=== PATIENT | female | born 1975 | race African-American/Black ===

== ENCOUNTER 2017-06-09 00:34 | Emergency (ER) | payer OTHER ==
[2017-06-09 00:58] VITALS: BMI 30.7
[2017-06-09] MEDS ORDERED: KETOROLAC TROMETHAMINE 15 MG/ML VIAL IVPUSH ONE (01:16)
[2017-06-09] MEDS ORDERED: SODIUM CHLORIDE 1,000 ML IV STA (01:17)
[2017-06-09 01:47] LABS: BASO % 0.3 % (0-2.0); EOS # 0.9 # (0-4.5); EOS % 5.9 % (0-4.5); LYMPH # 1.2 (8-40); MCH 20.7 pg (25.7-33.7); MCHC 31.3 g/dl (32.0-36.0); MEAN CELL VOLUME 66.1 fl (80-96); MEAN PLT VOLUME 9.9 fl (7.5-11.1); MONO # 0.5 # (3.8-10.2); NEUT # 12.2 # (42.8-82.8); NEUT % 82.4 % (42.8-82.8); PLATELET COUNT 256 K/MM3 (134-434); RDW 18.8 % (11.6-15.6); WHITE BLOOD COUNT 14.8 K/mm3 (4.0-10.0)
[2017-06-09 02:02] LABS: INR 1.19 (0.82-1.09); PROTHROMBIN TIME (PATIENT) 13.4 SEC (9.98-11.88)
[2017-06-09 02:04] LABS: ACTIVATED PTT 30.4 SECONDS (26.9-34.4)
[2017-06-09 02:17] LABS: ALBUMIN 3.4 g/dl (3.4-5.0); ANION GAP 9 (8-16); CALCIUM 8.5 mg/dL (8.5-10.1); CO2 26 mmol/L (21-32); CREATININE 0.7 mg/dL (0.55-1.02); GLUCOSE,RANDOM 87 mg/dL (74-106); SGOT/AST 41 U/L (15-37); SGPT/ALT 41 U/L (12-78)
[2017-06-09 02:19] LABS: ALK PHOS 93 U/L (45-117); BILIRUBIN,TOTAL 0.5 mg/dL (0.2-1.0); TOT PROT 7.1 g/dl (6.4-8.2); TROPONIN I 0.03 ng/ml (0.00-0.05)
--- NOTE | 2017-06-09 02:22 | PDOC ---
History of Present Illness <Yoni Waller - Last Filed: 06/09/17 06:17> <Bentley Darling - Last Filed: 06/09/17 06:43> - General Chief Complaint: Chest Pain Stated Complaint: CHEST PAIN Time Seen by Provider: 06/09/17 00:54 - History of Present Illness Initial Comments: 06/09/17 02:13 The patient is a 42 year old female, with a significant past medical history of HIV and hypertension, who presents to the emergency room with left sided chest pain beginning approx. 2 hours ago. The patient states that she has had many similar episodes of the exact same pain, which occurs approximately every other month and last for approx. 2-3 days. Pt states that the pain is slightly worse with deep inspiration. It is also reproducible with palpation of her chest. It is not exertional. Pt states that she has had several work ups but has not been given a diagnosis. Does not currently take anything for the pain. She denies recent fever, chills, headache, or dizziness. She denies recent diarrhea or constipation. She denies recent swelling or calf tenderness. She denies double or blurry vision. Allergies: NKA PCP: Tay Amado " 06/09/17 06:17 (Yoni Waller) Past History - Past Medical History Anemia: No Asthma: No Cancer: No HTN: Yes (NON MEDICATED) - Surgical History Abdominal Surgery: Yes (TUBAL LIGATION) Appendectomy: No Cardiac Surgery: No Cholecystectomy: No - Immunization History Td Vaccination: Yes Immunization Up to Date: Yes - Suicide/Smoking/Psychosocial Hx Smoking Status: No Smoking History: Unknown if ever smoked Years of Tobacco Use: 0 Have you smoked in the past 12 months: No Number of Cigarettes Smoked Daily: 0 Cigars Per Day: 0 Information on smoking cessation initiated: No Hx Alcohol Use: No Drug/Substance Use Hx: No Substance Use Type: None <Yoni Waller - Last Filed: 06/09/17 06:17> <Bentley Darling - Last Filed: 06/09/17 06:43> - Past Medical History Allergies/Adverse Reactions: Allergies Allergy/AdvReac Type Severity Reaction Status Date / Time No Known Allergies Allergy Verified 06/09/17 00:56 Home Medications: Ambulatory Orders No Home Medications 0 dose .ROUTE UTDICT 10/27/12 Review of Systems <Yoni Waller - Last Filed: 06/09/17 06:17> <Bentley Darling - Last Filed: 06/09/17 06:43> - Review of Systems Comments:: 06/09/17 02:22 "GENERAL/CONSTITUTIONAL: No fever or chills. No weakness. HEAD, EYES, EARS, NOSE AND THROAT: No change in vision. No ear pain or discharge. No sore throat. CARDIOVASCULAR: +Chest pain RESPIRATORY: No cough, wheezing, or hemoptysis. GASTROINTESTINAL: No nausea/vomiting, No diarrhea or constipation. GENITOURINARY: No dysuria, frequency, or change in urination. MUSCULOSKELETAL: No joint or muscle swelling or pain. No neck or back pain. SKIN: No rash NEUROLOGIC: No headache, vertigo, loss of consciousness, or change in strength/sensation. ENDOCRINE: No increased thirst. No abnormal weight change. HEMATOLOGIC/LYMPHATIC: No anemia, easy bleeding, or history of blood clots. ALLERGIC/IMMUNOLOGIC: No hives or skin allergy. " (Yoni Waller) *Physical Exam <Yoni Waller - Last Filed: 06/09/17 06:17> <Bentley Darling - Last Filed: 06/09/17 06:43> - Vital Signs Last Vital Signs Temp Pulse Resp BP Pulse Ox 97.5 F L 105 H 16 162/103 100 06/09/17 00:56 06/09/17 00:56 06/09/17 00:56 06/09/17 00:56 06/09/17 00:56 - Physical Exam Comments: 06/09/17 02:23 "GENERAL: Awake, alert, and fully oriented. HEAD: No signs of trauma EYES: PERRLA, EOMI, sclera anicteric, conjunctiva clear ENT: Auricles normal inspection, hearing grossly normal, nares patent, oropharynx clear without exudates. Moist mucosa NECK: Nontender, no stepoffs, Normal ROM, supple, no lymphadenopathy, JVD, or masses LUNGS: Breath sounds equal, clear to auscultation bilaterally. No wheezes, and no crackles HEART: Regular rate and rhythm, normal S1 and S2, no murmurs, rubs or gallops CHEST: L chest wall TTP ABDOMEN: Soft, nontender, normoactive bowel sounds. No guarding, no rebound. No masses EXTREMITIES: Normal range of motion, no edema. No clubbing or cyanosis. No cords , erythema, or tenderness NEUROLOGICAL: Cranial nerves II through XII intact. 5/5 strength and sensation in all extremities, Normal speech, normal gait SKIN: Warm, Dry, normal turgor, no rashes or lesions noted. " (Yoni Waller) Heart Score/ECG Review - History History: Slightly suspicious - Electrocardiogram EKG: Normal - Age Age: </= 45 - Risk Factors Risk Factors Heart Score: Yes Hx Obesity Based on the list above the patient has:: 1-2 risk factors - Troponin Troponin: </= normal limit - Score Heart Score - Total: 1 <Yoni Waller - Last Filed: 06/09/17 06:17> <Bentley Darling - Last Filed: 06/09/17 06:43> - ECG Impressions Comment:: 06/09/17 02:29 NSR, no LISA/STDs, no TWIs, axis wnl, intervals wnl, no change since prior EKG in 2012 (Aminah Walleran) ED Treatment Course - LABORATORY CBC & Chemistry Diagram: 06/09/17 01:35 06/09/17 01:35 <Yoni Waller - Last Filed: 06/09/17 06:17> - LABORATORY CBC & Chemistry Diagram: 06/09/17 01:35 06/09/17 01:35 <Bentley Darling - Last Filed: 06/09/17 06:43> - ADDITIONAL ORDERS Additional order review: Laboratory Results 06/09/17 06/09/17 06/09/17 04:01 01:35 01:35 PT with INR 13.40 H INR 1.19 H PTT (Actin FS) 30.4 Sodium 139 Potassium 3.7 Chloride 104 Carbon Dioxide 26 Anion Gap 9 BUN 10 D Creatinine 0.7 D Creat Clearance w eGFR > 60 Random Glucose 87 Calcium 8.5 Total Bilirubin 0.5 D AST 41 H ALT 41 Alkaline Phosphatase 93 Creatine Kinase Troponin I Total Protein 7.1 Albumin 3.4 Serum , Qual Negative 06/09/17 01:35 PT with INR INR PTT (Actin FS) Sodium Potassium Chloride Carbon Dioxide Anion Gap BUN Creatinine Creat Clearance w eGFR Random Glucose Calcium Total Bilirubin AST ALT Alkaline Phosphatase Creatine Kinase 101 Troponin I 0.03 Total Protein Albumin Serum , Qual 06/09/17 01:35 RBC 4.22 MCV 66.1 L MCHC 31.3 L RDW 18.8 H MPV 9.9 Neutrophils % 82.4 D Lymphocytes % 7.8 L D Monocytes % 3.6 L Eosinophils % 5.9 H D Basophils % 0.3 - RADIOLOGY Radiograph Interpretation: 06/09/17 06:43 EXAM: X-RAY CHEST No focal lung consolidation or pleural effusions. Cardiomegaly and/or pericardial effusion, with heart size also probably accentuated by minimal hypoinflation lungs. Reported by Debby Lawson M.D. (Bentley Darling) - Medications Given in the ED: ED Medications Discontinued Medications Generic Name Dose Route Start Last Admin Trade Name Freq PRN Reason Stop Dose Admin Sodium Chloride 1,000 mls @ 1,000 mls/hr 06/09/17 01:17 06/09/17 01:20 Normal Saline - IV 06/09/17 02:16 1,000 mls/hr ASDIR STA Administration Ketorolac Tromethamine 15 mg 06/09/17 01:16 06/09/17 06:32 Toradol Injection - IVPUSH 06/09/17 01:17 15 mg ONCE ONE Administration Medical Decision Making <Yoni Waller - Last Filed: 06/09/17 06:17> <Bentley Darling - Last Filed: 06/09/17 06:43> - Medical Decision Making 06/09/17 02:24 42 F with atypical L sided chest pain. Pt has had multiple prior work ups for the same. EKG is nonischemic, making ACS unlikely. Pt with no PE risk factors but tachycardic so cannot PERC out. Will send Ddimer to r/o PE. - Labs, trop - CXR - Toradol 06/09/17 06:11 CBC,CMP WBC 14.8 K/mm3 (4.0-10.0) H D 06/09/17 01:35 RBC 4.22 M/mm3 (3.60-5.2) 06/09/17 01:35 Hgb 8.7 GM/dL (10.7-15.3) L D 06/09/17 01:35 Hct 27.9 % (32.4-45.2) L D 06/09/17 01:35 MCV 66.1 fl (80-96) L 06/09/17 01:35 MCH 20.7 pg (25.7-33.7) L 06/09/17 01:35 MCHC 31.3 g/dl (32.0-36.0) L 06/09/17 01:35 RDW 18.8 % (11.6-15.6) H 06/09/17 01:35 Plt Count 256 K/MM3 (134-434) 06/09/17 01:35 MPV 9.9 fl (7.5-11.1) 06/09/17 01:35 Neutrophils % 82.4 % (42.8-82.8) D 06/09/17 01:35 Lymphocytes % 7.8 % (8-40) L D 06/09/17 01:35 Monocytes % 3.6 % (3.8-10.2) L 06/09/17 01:35 Eosinophils % 5.9 % (0-4.5) H D 06/09/17 01:35 Basophils % 0.3 % (0-2.0) 06/09/17 01:35 Sodium 139 mmol/L (136-145) 06/09/17 01:35 Potassium 3.7 mmol/L (3.5-5.1) 06/09/17 01:35 Chloride 104 mmol/L (98-107) 06/09/17 01:35 Carbon Dioxide 26 mmol/L (21-32) 06/09/17 01:35 Anion Gap 9 (8-16) 06/09/17 01:35 BUN 10 mg/dL (7-18) D 06/09/17 01:35 Creatinine 0.7 mg/dL (0.55-1.02) D 06/09/17 01:35 Creat Clearance w eGFR > 60 (>60) 06/09/17 01:35 Random Glucose 87 mg/dL (74-106) 06/09/17 01:35 Calcium 8.5 mg/dL (8.5-10.1) 06/09/17 01:35 Total Bilirubin 0.5 mg/dL (0.2-1.0) D 06/09/17 01:35 AST 41 U/L (15-37) H 06/09/17 01:35 ALT 41 U/L (12-78) 06/09/17 01:35 Alkaline Phosphatase 93 U/L (45-117) 06/09/17 01:35 Creatine Kinase 101 IU/L (26-192) 06/09/17 01:35 Troponin I 0.03 ng/ml (0.00-0.05) 06/09/17 01:35 Total Protein 7.1 g/dl (6.4-8.2) 06/09/17 01:35 Albumin 3.4 g/dl (3.4-5.0) 06/09/17 01:35 Serum , Qual Negative 06/09/17 04:01 Trop negative x1. CXR clear on my read. Pending 2nd trop and Ddimer. (Yoni Waller) *DC/Admit/Observation/Transfer <Yoni Waller - Last Filed: 06/09/17 06:17> <Bentley Darling - Last Filed: 06/09/17 06:43> - Referrals Referrals: Josesito Cross [Primary Care Provider] - - Patient Instructions - Post Discharge Activity - Attestations Scribe Attestion: 06/09/17 02:31 Documentation prepared by Bentley Darling, acting as medical terminologist for Yoni Waller MD. (Bentley Darling)
[2017-06-09] MEDS ORDERED: KETOROLAC TROMETHAMINE 15 MG/ML VIAL ONE (06:26)
[2017-06-09 07:13] LABS: TROPONIN I 0.03 ng/ml (0.00-0.05)
--- NOTE | 2017-06-09 09:56 | PDOC ---
*Physical Exam - Vital Signs Last Vital Signs Temp Pulse Resp BP Pulse Ox 97.5 F L 105 H 16 162/103 100 06/09/17 00:56 06/09/17 00:56 06/09/17 00:56 06/09/17 00:56 06/09/17 00:56 ED Treatment Course - LABORATORY CBC & Chemistry Diagram: 06/09/17 01:35 06/09/17 01:35 - ADDITIONAL ORDERS Additional order review: Laboratory Results 06/09/17 06/09/17 06/09/17 06:31 06:31 04:01 PT with INR INR PTT (Actin FS) D-Dimer 395 H Sodium Potassium Chloride Carbon Dioxide Anion Gap BUN Creatinine Creat Clearance w eGFR Random Glucose Calcium Total Bilirubin AST ALT Alkaline Phosphatase Creatine Kinase 106 Troponin I 0.03 Total Protein Albumin Serum , Qual Negative 06/09/17 06/09/17 06/09/17 01:35 01:35 01:35 PT with INR 13.40 H INR 1.19 H PTT (Actin FS) 30.4 D-Dimer Sodium 139 Potassium 3.7 Chloride 104 Carbon Dioxide 26 Anion Gap 9 BUN 10 D Creatinine 0.7 D Creat Clearance w eGFR > 60 Random Glucose 87 Calcium 8.5 Total Bilirubin 0.5 D AST 41 H ALT 41 Alkaline Phosphatase 93 Creatine Kinase 101 Troponin I 0.03 Total Protein 7.1 Albumin 3.4 Serum , Qual 06/09/17 01:35 RBC 4.22 MCV 66.1 L MCHC 31.3 L RDW 18.8 H MPV 9.9 Neutrophils % 82.4 D Lymphocytes % 7.8 L D Monocytes % 3.6 L Eosinophils % 5.9 H D Basophils % 0.3 - RADIOLOGY Radiology Studies Ordered: Category Date Time Status CHEST CTA [CT] Stat CT Scan 06/09/17 07:22 Completed - Medications Given in the ED: ED Medications Discontinued Medications Generic Name Dose Route Start Last Admin Trade Name Freq PRN Reason Stop Dose Admin Sodium Chloride 1,000 mls @ 1,000 mls/hr 06/09/17 01:17 06/09/17 01:20 Normal Saline - IV 06/09/17 02:16 1,000 mls/hr ASDIR STA Administration Ketorolac Tromethamine 15 mg 06/09/17 01:16 06/09/17 06:32 Toradol Injection - IVPUSH 06/09/17 01:17 15 mg ONCE ONE Administration Medical Decision Making - Medical Decision Making 06/09/17 09:56 pt signed out to me from dr. mendoza. 42y F hx of HIV (on HAART, last CD4 700s), HTN, presents with complain tof L sided cp, episodic, pleuritic in nature associated with cough productive of whitish sputum, subjective fevers yesterday. No associated fan, leg swelling, hemoptysis. Pts exam unremabable beside mild tenderness in the chest lungs clear pt i nno distress pts repeat vitals normal. will give rx for azithro will have pt fu with her ID doctor within 5 days return precautions were discussed I discussed the physical exam findings, ancillary test results and final diagnoses with the patient. I answered all of the patient's questions. The patient was satisfied with the care received and felt comfortable with the discharge plan and treatment plan. The patient will call their primary care physician within 24 hours to arrange follow-up and will return to the Emergency Department with any new, persistent or worsening symptoms. *DC/Admit/Observation/Transfer Diagnosis at time of Disposition: Pneumonia Qualifiers: Pneumonia type: due to unspecified organism Laterality: right Lung location: unspecified part of lung Qualified Code(s): J18.9 - Pneumonia, unspecified organism Chest pain Qualifiers: Chest pain type: unspecified Qualified Code(s): R07.9 - Chest pain, unspecified - Discharge Dispostion Disposition: HOME Condition at time of disposition: Improved Admit: No - Prescriptions Prescriptions: Azithromycin 250 mg PO DAILY #4 tablet - Referrals Referrals: Josesito Cross [Primary Care Provider] - - Patient Instructions Printed Discharge Instructions: DI for Pneumonia -- Adult, DI for Atypical Chest Pain Additional Instructions: Return to the emergency department immediately with ANY new, persistent or worsening symptoms includnig any shortness of breath, worsening pain or any other concerns. Tkae the antibitotics as prescribed Take motrin and tylenol as needed for fever/aches. You MUSTcall and follow up with Dr. Cross within 3-4 days w for further evaluation of your symptoms. Results were discussed with you. Please make sure your doctor reviews the results of your emergency evaluation. - Post Discharge Activity
[2017-06-09] MEDS ORDERED: AZITHROMYCIN 500 MG TABLET PO ONE (10:08)
[2017-06-09] MEDS ORDERED: ACETAMINOPHEN 325 MG TABLET (FP) PO ONE (10:20)
[2017-06-09 10:22] VITALS: BP 157/99; PULSE 97
[2017-06-09 10:26] VITALS: TEMP 99
[2017-06-09] MEDS ORDERED: AZITHROMYCIN 250 MG TABLET ONE (12:16)
[2017-06-09] MEDS ORDERED: ACETAMINOPHEN 325 MG TABLET (FP) ONE (12:17)
--- NOTE | 2017-06-09 13:08 | EKG ---
Test Reason : Blood Pressure : / mmHG Vent. Rate : 101 BPM Atrial Rate : 101 BPM P-R Int : 176 ms QRS Dur : 078 ms QT Int : 354 ms P-R-T Axes : 053 040 042 degrees QTc Int : 459 ms SINUS TACHYCARDIA OTHERWISE NORMAL ECG WHEN COMPARED WITH ECG OF 06-DEC-2012 04:25, ST NO LONGER ELEVATED IN ANTERIOR LEADS Confirmed by MD Orellana Daniel ([id number]) on 06/09/2017 1:08:24 PM Referred By: Confirmed By:Jassi Orellana MD
== END 2017-06-09 12:22 | disposition home or self-care (01) ==
LOC: JER 00:34
PROC: 3E0333Z Introduction of Anti-inflammatory into Peripheral Vein, Percutaneous Approach (ICD-10-PCS; principal; 2017-06-09)
PROC: 3E0337Z Introduction of Electrolytic and Water Balance Substance into Peripheral Vein, Percutaneous Approach (ICD-10-PCS; 2017-06-09)
DX: R07.9 Chest pain, unspecified (principal); J18.9 Pneumonia, unspecified organism
CPT/HCPCS: 36415; 71020-TC; 71275-TC; 80053; 82550; 84484; 84703; 85025; 85379; 85610; 85730; 93005; 93010; 96361; 96374; 99285-25

== ENCOUNTER 2017-09-04 13:12 | Inpatient (IN) | payer OTHER ==
[2017-09-04] MEDS ORDERED: ACETAMINOPHEN 1000 MG/100 ML VIAL (NON FORMULARY) IVPB ONE (13:51)
[2017-09-04] MEDS ORDERED: ACETAMINOPHEN INJECTION 100 ML IVPB ONE (13:55)
[2017-09-04 14:03] LABS: BASO % 1.1 % (0-2.0); EOS % 3.7 % (0-4.5); HEMATOCRIT 30.8 % (32.4-45.2); HEMOGLOBIN 9.7 GM/dL (10.7-15.3); LYMPH % 34.4 % (8-40); MCHC 31.5 g/dl (32.0-36.0); MEAN CELL VOLUME 66.7 fl (80-96); MEAN PLT VOLUME 9.9 fl (7.5-11.1); MONO % 5.8 % (3.8-10.2); PLATELET COUNT 325 K/MM3 (134-434); RBC 4.61 M/mm3 (3.60-5.2); RDW 19.7 % (11.6-15.6); WHITE BLOOD COUNT 5.6 K/mm3 (4.0-10.0)
[2017-09-04 14:19] LABS: INR 1.04 (0.82-1.09); PROTHROMBIN TIME (PATIENT) 11.7 SEC (9.98-11.88)
--- NOTE | 2017-09-04 14:31 | PDOC ---
History of Present Illness <Bentley Darling - Last Filed: 09/04/17 14:42> <Yoni Waller - Last Filed: 09/04/17 19:55> <Jennie Archer - Last Filed: 09/04/17 21:42> - General Chief Complaint: Shortness of Breath Stated Complaint: CHEST PAIN Time Seen by Provider: 09/04/17 13:15 - History of Present Illness Initial Comments: 09/04/17 14:26 "The patient is a 42 year old female, with a significant past medical history of HIV (last CD4 1000, does not remember VL), anxiety, hypertension, panic attacks, who presents to the emergency department complaining of chest pain and shortness of breath beginning this morning. The patient states she visited her PCP at the [facility] earlier today to establish care. She was advised to come to the ED for evaluation when she started complaining of the shortness of breath and chest pain. The patient also reports left arm pain for approx. 3 days described as a sharp pain. The patient reports a family history of cardiac disease and states her grandmother from a [place] at 56. The patient reports she has never had this chest pain in the past. The patient states she has not taken her blood pressure medication this morning. She denies any recent travel. She denies recent fevers, chills, headache or dizziness. She denies recent nausea, vomit, diarrhea or constipation. She denies recent dysuria, frequency, urgency or hematuria. Allergies: NKA Social history: Nonsmoker. Denies EtOH use and recreational drug use. Primary Care Physician: Dr. Nikky Huang " (Yoni Waller) Past History <Bentley Darling - Last Filed: 09/04/17 14:42> - Past Medical History Anemia: No Asthma: No Cancer: No Cardiac Disorders: No COPD: No Diabetes: No HTN: Yes Hypercholesterolemia: Yes Liver Disease: No Seizures: No Thyroid Disease: No - Surgical History Orthopedic Surgery: Yes (2015-L knee replacement/arthritis; 2016- R knee replace /arthritis ([place])) - Suicide/Smoking/Psychosocial Hx Smoking History: Never smoked Have you smoked in the past 12 months: No Information on smoking cessation initiated: No Hx Alcohol Use: No Drug/Substance Use Hx: No <Yoni Waller - Last Filed: 09/04/17 19:55> <Jennie Archer - Last Filed: 09/04/17 21:42> - Past Medical History Allergies/Adverse Reactions: Allergies Allergy/AdvReac Type Severity Reaction Status Date / Time No Known Allergies Allergy Verified 09/04/17 11:58 Home Medications: Ambulatory Orders Elviteg/Cob/Emtri/Tenof Alafen [Genvoya Tablet] 1 tab PO DAILY 09/04/17 Review of Systems <Bentley Darling - Last Filed: 09/04/17 14:42> <Yoni Waller - Last Filed: 09/04/17 19:55> <Jennie Archer - Last Filed: 09/04/17 21:42> - Review of Systems Comments:: 09/04/17 14:28 "GENERAL/CONSTITUTIONAL: No fever or chills. No weakness. HEAD, EYES, EARS, NOSE AND THROAT: No change in vision. No ear pain or discharge. No sore throat. CARDIOVASCULAR: +Chest pain. +Shortness of breath. RESPIRATORY: No cough, wheezing, or hemoptysis. GASTROINTESTINAL: No nausea, vomiting, diarrhea or constipation. GENITOURINARY: No dysuria, frequency, or change in urination. MUSCULOSKELETAL: +Left arm pain. No neck or back pain. SKIN: No rash NEUROLOGIC: No headache, vertigo, loss of consciousness, or change in strength/ sensation. ENDOCRINE: No increased thirst. No abnormal weight change. HEMATOLOGIC/LYMPHATIC: No anemia, easy bleeding, or history of blood clots. ALLERGIC/IMMUNOLOGIC: No hives or skin allergy. " (Yoni Waller) *Physical Exam <Bentley Darling - Last Filed: 09/04/17 14:42> <Yoni Waller - Last Filed: 09/04/17 19:55> <Jennie Archer - Last Filed: 09/04/17 21:42> - Vital Signs Last Vital Signs Temp Pulse Resp BP Pulse Ox 98.3 F 89 20 135/80 98 09/04/17 20:20 09/04/17 20:20 09/04/17 20:20 09/04/17 20:20 09/04/17 20:20 - Physical Exam Comments: 09/04/17 14:28 "GENERAL: Awake, alert, and fully oriented, in no acute distress HEAD: No signs of trauma EYES: PERRLA, EOMI, sclera anicteric, conjunctiva clear ENT: Auricles normal inspection, hearing grossly normal, nares patent, oropharynx clear without exudates. Moist mucosa NECK: Nontender, no stepoffs, Normal ROM, supple, no lymphadenopathy, JVD, or masses LUNGS: Breath sounds equal, clear to auscultation bilaterally. No wheezes, and no crackles HEART: Regular rate and rhythm, normal S1 and S2, no murmurs, rubs or gallops ABDOMEN: Soft, nontender, normoactive bowel sounds. No guarding, no rebound. No masses EXTREMITIES: Normal range of motion, no edema. No clubbing or cyanosis. No cords, erythema, or tenderness NEUROLOGICAL: Cranial nerves II through XII intact. 5/5 strength and sensation in all extremities, Normal speech, normal gait, normal cerebellar function SKIN: Warm, Dry, normal turgor, no rashes or lesions noted. " (Yoni Waller) Heart Score/ECG Review <Bentley Darling - Last Filed: 09/04/17 14:42> - History History: Slightly suspicious - Electrocardiogram EKG: Normal - Age Age: </= 45 - Risk Factors Risk Factors Heart Score: Yes Hx Hypertension, Yes Positive family hx of cardiac disease Based on the list above the patient has:: >/=3 risk factors or Hx atherosclerotic disease - Troponin Troponin: </= normal limit - Score Heart Score - Total: 2 <Yoni Waller - Last Filed: 09/04/17 19:55> <Jennie Archer - Last Filed: 09/04/17 21:42> - ECG Impressions Comment:: 09/04/17 14:31 NSR, no LISA/STDs, no TWIs, axis wnl, intervals wnl, rate 69 (Yoni Waller) ED Treatment Course - LABORATORY CBC & Chemistry Diagram: 09/04/17 13:50 09/04/17 13:50 <Bentley Darling - Last Filed: 09/04/17 14:42> - LABORATORY CBC & Chemistry Diagram: 09/04/17 13:50 09/04/17 13:50 <Yoni Waller - Last Filed: 09/04/17 19:55> - LABORATORY CBC & Chemistry Diagram: 09/04/17 13:50 09/04/17 13:50 <Jennie Archer - Last Filed: 09/04/17 21:42> - ADDITIONAL ORDERS Additional order review: Laboratory Results 09/04/17 09/04/17 09/04/17 17:20 13:52 13:52 PT with INR INR D-Dimer Sodium Potassium Chloride Carbon Dioxide Anion Gap BUN Creatinine Creat Clearance w eGFR Random Glucose Calcium Total Bilirubin AST ALT Alkaline Phosphatase Creatine Kinase Troponin I 0.06 H B-Natriuretic Peptide 34.81 Total Protein Albumin Urine Color Colorless Urine Appearance Clear Urine pH 7.0 Ur Specific [place] 1.004 Urine Protein Negative Urine Glucose (UA) Negative Urine Ketones Negative Urine Blood Negative Urine Nitrite Negative Urine Bilirubin Negative Urine Urobilinogen Negative Ur Leukocyte Esterase Negative Urine HCG, Qual Negative 09/04/17 09/04/17 09/04/17 13:52 13:52 13:50 PT with INR 11.70 INR 1.04 D-Dimer 351 Sodium Potassium Chloride Carbon Dioxide Anion Gap BUN Creatinine Creat Clearance w eGFR Random Glucose Calcium Total Bilirubin AST ALT Alkaline Phosphatase Creatine Kinase Cancelled Troponin I Cancelled B-Natriuretic Peptide Total Protein Albumin Urine Color Urine Appearance Urine pH Ur Specific [place] Urine Protein Urine Glucose (UA) Urine Ketones Urine Blood Urine Nitrite Urine Bilirubin Urine Urobilinogen Ur Leukocyte Esterase Urine HCG, Qual 09/04/17 13:50 PT with INR INR D-Dimer Sodium 138 Potassium 4.7 Chloride 103 Carbon Dioxide 26 Anion Gap 9 BUN 8 Creatinine 0.7 Creat Clearance w eGFR > 60 Random Glucose 80 Calcium 8.9 Total Bilirubin 0.5 AST 60 H ALT 62 Alkaline Phosphatase 91 Creatine Kinase 95 Troponin I 0.05 B-Natriuretic Peptide Total Protein 8.0 Albumin 3.9 Urine Color Urine Appearance Urine pH Ur Specific [place] Urine Protein Urine Glucose (UA) Urine Ketones Urine Blood Urine Nitrite Urine Bilirubin Urine Urobilinogen Ur Leukocyte Esterase Urine HCG, Qual 09/04/17 13:50 RBC 4.61 MCV 66.7 L MCHC 31.5 L RDW 19.7 H MPV 9.9 Neutrophils % 55.0 Lymphocytes % 34.4 Monocytes % 5.8 Eosinophils % 3.7 Basophils % 1.1 - Medications Given in the ED: ED Medications Discontinued Medications Generic Name Dose Route Start Last Admin Trade Name Freq PRN Reason Stop Dose Admin Acetaminophen 1,000 mg 09/04/17 13:51 09/04/17 14:00 Ofirmev Injection - IVPB 09/04/17 13:52 1,000 mg ONCE ONE Administration Amlodipine Besylate 5 mg 09/04/17 15:04 09/04/17 15:07 Norvasc - PO 09/04/17 15:05 5 mg ONCE ONE Administration Ketorolac Tromethamine 15 mg 09/04/17 14:58 09/04/17 15:04 Toradol Injection - IVPUSH 09/04/17 14:59 15 mg ONCE ONE Administration Tramadol HCl 50 mg 09/04/17 16:50 09/04/17 17:16 Ultram - PO 09/04/17 16:51 50 mg ONCE ONE Administration Medical Decision Making <Bentley Darling - Last Filed: 09/04/17 14:42> <Yoni Waller - Last Filed: 09/04/17 19:55> <Jennie Archer - Last Filed: 09/04/17 21:42> - Medical Decision Making 09/04/17 14:32 42 F with CP/SOB. Pt has FH of [place], so will r/o ACS with trop and EKG. Pt is immune compromised, but pt does not have any fevers or focal infectious symptoms. Consider CHF, though pt without any rales or pitting edema. PE is unlikely as pt has no clinical signs of DVT/PE and has normal vitals. - Labs, trop, BNP, ddimer - CXR 09/04/17 15:03 Labs, trop, BNP, ddimer all wnl CXR pending Will send 2nd trop @ 4 hours. 09/04/17 16:26 CXR unremarkable 09/04/17 19:56 2nd trop 0.06, slightly higher than previous 0.05. Given continued chest pain and mild uptrend in troponin, will admit to tele obs. (Yoni Waller) 09/04/17 19:28 Pt endorsed to hospitalist service for placement on tele. (Jennie Archer) *DC/Admit/Observation/Transfer <Bentley Darling - Last Filed: 09/04/17 14:42> <Yoni Waller - Last Filed: 09/04/17 19:55> - Discharge Dispostion Admit: Yes <Jennie Archer - Last Filed: 09/04/17 21:42> Diagnosis at time of Disposition: Left arm pain Chest pain Qualifiers: Chest pain type: unspecified Qualified Code(s): R07.9 - Chest pain, unspecified - Discharge Dispostion Condition at time of disposition: Stable - Attestations Scribe Attestion: 09/04/17 14:43 Documentation prepared by Bentley Darling, acting as medical technologist prn for Yoni Waller MD. (Bentley Darling) Physician Attestion: 09/04/17 19:55 I, Dr. Yoni Waller MD, attest that this document has been prepared under my direction and personally reviewed by me in its entirety. I further attest, that it accurately reflects all work, treatment, procedures and medical decision -making performed by me. (Yoni Waller)
[2017-09-04 14:33] LABS: ALBUMIN 3.9 g/dl (3.4-5.0); ANION GAP 9 (8-16); BLOOD UREA NITROGEN 8 mg/dL (7-18); CALCIUM 8.9 mg/dL (8.5-10.1); CHLORIDE 103 mmol/L (98-107); CO2 26 mmol/L (21-32); CREATININE 0.7 mg/dL (0.55-1.02); GLUCOSE,RANDOM 80 mg/dL (74-106); SGPT/ALT 62 U/L (12-78); SODIUM 138 mmol/L (136-145)
[2017-09-04 14:37] LABS: ALK PHOS 91 U/L (45-117); BILIRUBIN,TOTAL 0.5 mg/dL (0.2-1.0)
[2017-09-04 14:49] LABS: HCG,QUALITATIVE URINE NEGATIVE; URINE APPEARANCE CLEAR; URINE BILIRUBIN NEGATIVE (<2.0 mg/dL); URINE BLOOD NEGATIVE (NEGATIVE); URINE COLOR COLORLESS; URINE GLUCOSE (UA) NEGATIVE (NEGATIVE); URINE KETONE NEGATIVE (NEGATIVE); URINE LEUK ESTERASE NEGATIVE (NEGATIVE); URINE NITRITE NEGATIVE (NEGATIVE); URINE PROTEIN NEGATIVE (NEGATIVE); URINE UROBILINOGEN NEGATIVE mg/dL (0.2-1.0)
[2017-09-04 14:50] LABS: POTASSIUM 4.7 mmol/L (3.5-5.1); SGOT/AST 60 U/L (15-37)
[2017-09-04] MEDS ORDERED: KETOROLAC TROMETHAMINE 15 MG/ML VIAL IVPUSH ONE (14:58)
[2017-09-04] MEDS ORDERED: KETOROLAC TROMETHAMINE 15 MG/ML VIAL ONE (15:01)
[2017-09-04] MEDS ORDERED: amLODIPine BESYLATE 5 MG TABLET (FP) PO ONE ×2 (15:04→22:15)
[2017-09-04] MEDS ORDERED: amLODIPine BESYLATE 5 MG TABLET (FP) ONE (15:05)
[2017-09-04] MEDS ORDERED: traMADol HCL 50 MG TABLET PO ONE (16:50)
[2017-09-04] MEDS ORDERED: traMADol HCL 50 MG TABLET ONE (17:13)
--- NOTE | 2017-09-04 20:55 | HP ---
CHIEF COMPLAINT: chest pain and arm pain PCP: Dr. Nikky Polanco HISTORY OF PRESENT ILLNESS: 42 y/o F w/PMH of HIV (VL 1000, CD4 743 as per pt in February 2017), HTN, panic attacks, presents to the ER for chest pain and L arm pain. Pt has had L arm pain for 2 days that is sharp and starts at shoulder and is rated at a 9/ 10. She was seen at the [address] [place] [address] to establish care there and was found to have elevated BP and developed CP and SOB (which she states was in line with what she feels when she's anxious) and was told to come to the ER. She states her chest pain starts in her L upper chest near her shoulder and is also rated as a 9/10 and sharp with radiation down her left arm. It started all of sudden while in the clinic. Exertion did not make it worse. She also notes that she has not taken her BP meds since moving here as she hadn't seen a physician until today and had run out of meds. She denies n/v/f/c, diaphoresis, change in vision, ringing in ears, light-headedness, abd pain, cough, lower extremity edema, dysuria, hematuria, change in bowel movements, recent travel history, sick contacts. ER course was notable for: (1) norvasc, toradol, ultram, ofirmev, cxr (2) (3) Recent Travel: denies PAST MEDICAL HISTORY: HIV (VL 1000, CD4 743 as per pt in February 2017), HTN, panic attacks PAST SURGICAL HISTORY: L knee replacement 2014, R knee replacement 2015 Social History: Smoking:denies Alcohol:denies Drugs: denies Family History: father: esrd (unknown cause); mother: arthritis; grandmother of [place] at age 62 Allergies No Known Allergies Allergy (Verified 09/04/17 11:58) HOME MEDICATIONS: Home Medications Medication Instructions Recorded Elviteg/Cob/Emtri/Tenof Alafen 1 tab PO DAILY 09/04/17 [Genvoya Tablet] REVIEW OF SYSTEMS CONSTITUTIONAL: Absent: fever, chills, diaphoresis HEENT: Absent: tinnitus, visual changes CARDIOVASCULAR: +chest pain, Absent: syncope, palpitations, irregular heart rate, lightheadedness, peripheral edema RESPIRATORY: +sob Absent: cough, dyspnea with exertion GASTROINTESTINAL: Absent: abdominal pain,nausea, vomiting, diarrhea, constipation, hematochezia GENITOURINARY: Absent: dysuria, frequency, hematuria MUSCULOSKELETAL: +L arm pain SKIN: Absent: erythema NEUROLOGIC: Absent: dizziness PHYSICAL EXAMINATION Vital Signs - 24 hr 09/04/17 09/04/17 09/04/17 13:17 13:24 13:26 Temperature 97.2 F L 97.6 F Pulse Rate 74 Pulse Rate [ 72 Right Radial] Respiratory 20 20 Rate Blood Pressure 172/98 Blood Pressure 172/96 [Right Arm] O2 Sat by Pulse 100 100 100 Oximetry (%) 09/04/17 09/04/17 09/04/17 13:40 17:57 19:27 Temperature Pulse Rate Pulse Rate [ 82 Right Radial] Respiratory 18 18 Rate Blood Pressure Blood Pressure 147/93 145/87 [Right Arm] O2 Sat by Pulse 100 100 Oximetry (%) GENERAL: Awake, alert, and fully oriented, in no acute distress. EYES: extraocular movements intact, sclera anicteric, conjunctiva clear. EARS, NOSE, THROAT: Ears normal, nares patent, Moist mucous membranes. NECK: Normal range of motion, supple LUNGS: Diminished breath sounds but wheezes or crackles auscultated. HEART: Regular rate and rhythm, normal S1 and S2 without murmur ABDOMEN: Soft, obese, nontender, not distended, normoactive bowel sounds MUSCULOSKELETAL: LUE exquisitely tender to palpation. Cannot actively or passively move arm due to pain. Left upper chest wall with exquisite tenderness as well. 4/5 site monitor strength LUE. 5/5 site monitor strength RUE UPPER EXTREMITIES: 2+ pulses, warm, well-perfused. No edema/swelling, no erythema. LOWER EXTREMITIES: 2+ pulses, No calf tenderness. No peripheral edema. NEUROLOGICAL: Normal speech. Gait not observed. PSYCHIATRIC: Cooperative. Good eye contact. Appropriate mood and affect. SKIN: Warm, dry Laboratory Results - last 24 hr 09/04/17 09/04/17 09/04/17 13:50 13:50 13:50 WBC 5.6 RBC 4.61 Hgb 9.7 L Hct 30.8 L MCV 66.7 L MCH 21.0 L MCHC 31.5 L RDW 19.7 H Plt Count 325 MPV 9.9 Neutrophils % 55.0 Lymphocytes % 34.4 Monocytes % 5.8 Eosinophils % 3.7 Basophils % 1.1 PT with INR 11.70 INR 1.04 D-Dimer Sodium 138 Potassium 4.7 Chloride 103 Carbon Dioxide 26 Anion Gap 9 BUN 8 Creatinine 0.7 Creat Clearance w eGFR > 60 Random Glucose 80 Calcium 8.9 Total Bilirubin 0.5 AST 60 H ALT 62 Alkaline Phosphatase 91 Creatine Kinase 95 Troponin I 0.05 B-Natriuretic Peptide Total Protein 8.0 Albumin 3.9 Urine Color Urine Appearance Urine pH Ur Specific [place] Urine Protein Urine Glucose (UA) Urine Ketones Urine Blood Urine Nitrite Urine Bilirubin Urine Urobilinogen Ur Leukocyte Esterase Urine HCG, Qual 09/04/17 09/04/17 09/04/17 13:52 13:52 13:52 WBC RBC Hgb Hct MCV MCH MCHC RDW Plt Count MPV Neutrophils % Lymphocytes % Monocytes % Eosinophils % Basophils % PT with INR INR D-Dimer 351 Sodium Potassium Chloride Carbon Dioxide Anion Gap BUN Creatinine Creat Clearance w eGFR Random Glucose Calcium Total Bilirubin AST ALT Alkaline Phosphatase Creatine Kinase Cancelled Troponin I Cancelled B-Natriuretic Peptide Total Protein Albumin Urine Color Colorless Urine Appearance Clear Urine pH 7.0 Ur Specific [place] 1.004 Urine Protein Negative Urine Glucose (UA) Negative Urine Ketones Negative Urine Blood Negative Urine Nitrite Negative Urine Bilirubin Negative Urine Urobilinogen Negative Ur Leukocyte Esterase Negative Urine HCG, Qual Negative 09/04/17 09/04/17 13:52 17:20 WBC RBC Hgb Hct MCV MCH MCHC RDW Plt Count MPV Neutrophils % Lymphocytes % Monocytes % Eosinophils % Basophils % PT with INR INR D-Dimer Sodium Potassium Chloride Carbon Dioxide Anion Gap BUN Creatinine Creat Clearance w eGFR Random Glucose Calcium Total Bilirubin AST ALT Alkaline Phosphatase Creatine Kinase Troponin I 0.06 H B-Natriuretic Peptide 34.81 Total Protein Albumin Urine Color Urine Appearance Urine pH Ur Specific [place] Urine Protein Urine Glucose (UA) Urine Ketones Urine Blood Urine Nitrite Urine Bilirubin Urine Urobilinogen Ur Leukocyte Esterase Urine HCG, Qual Imaging: CXR: Cardiomegaly, no acute pathology EKG: NSR @ 69 bpm; qtc 439. TWI in V1. No ST segment elevations or depressions noted. Active Medications Acetaminophen (Tylenol -) 650 mg PO Q4H PRN PRN Reason: PAIN LEVEL 1 - 3 Amlodipine Besylate (Norvasc -) 5 mg PO DAILY YARY ASSESSMENT/PLAN: 42 y/o F w/PMH of HIV (VL 1000, CD4 743 as per pt in February 2017), HTN, panic attacks, presents to the ER for chest pain and L arm pain. Under obs for chest pain. -Atypical chest pain -Trend trops -Source likely msk with reproducible pain -TSH and lipid panel for AM ordered -tylenol for pain prn -LUE pain -will get L shoulder and L elbow xr -f/u ESR, CRP -consider rheum consult -lyrica 75 mg po once given -will need to assess pt's pain after receiving med -HTN -increase norvasc to 10 mg po qd -will add hctz 25 mg po qd -will need prescription on discharge -Microcytic Anemia -no baseline -f/u iron studies -no obvious signs of bleed at this time -Elevated aminotransferases -likely secondary to genvoya -HIV -c/w genvoya, pt will need to bring in meds -DVT ppx -SCDs -FEN -no fluids -monitor electrolytes -Regular diet -Dispo: Obs/tele Visit type - Emergency Visit Emergency Visit: Yes ED Registration Date: 09/06/17 Care time: The patient presented to the Emergency Department on the above date and was hospitalized for further evaluation of their emergent condition. - New Patient This patient is new to me today: Yes Date on this admission: 09/07/17 - Critical Care Critical Care patient: No Hospitalist Screening - Colonoscopy Questionnaire Colonoscopy Questionnaire: Colonoscopy Questionnaire - Patient: 50 - 75 years old and never had a screening colonoscopy: Unknown History of colon or rectal polyps, or CA: Unknown History of IBD, Crohn's disease or UC: Unknown History of abdominal radiation therapy as a child: Unknown - Relative: 1 with colon or rectal CA, or polyps at age 60 or younger: Unknown Colon or rectal CA diagnosed at age 45 or younger: Unknown Multiple relatives with colon or rectal CA: Unknown - Outcome: Screening Result: Negative Screen
[2017-09-04] MEDS ORDERED: PREGABALIN 75 MG CAPSULE PO ONE (21:45)
--- NOTE | 2017-09-04 21:53 | PN ---
Teaching Attending Note Name of Resident: Derik Raymond ATTENDING PHYSICIAN STATEMENT I saw and evaluated the patient. I reviewed the resident's note and discussed the case with the resident. I agree with the resident's findings and plan as documented. SUBJECTIVE: 42F with HTN HIV Obesity p/w pain in the left shouldewr radiating to her left arm, sharp, shooting, and started 3 days ago, cannot recall any inciting factor. At this point she cannot move the arm without significant pain OBJECTIVE: Gen: NAD AAOx3 MSK: TTP throughout Left shoulder to mid forearm, without any swelling, erythema , or obvious deformity. CV: RRR no m/r/g ASSESSMENT AND PLAN: 42F with likely radiculopathic pain possibly from arthritis of shoulder or elbow joint vs C-spine XR imaging pain control start lyrica Inflammatory markers uncontrolled HTN - likely exacerbated by pain increase amlodipine to 10mg daily lisinopril 10mg HCTZ 25mg daily HIV send CD4, VL voya
[2017-09-04] MEDS: ACETAMINOPHEN 325 MG TABLET (FP) PO PRN (22:05)
[2017-09-04 22:39] VITALS: BMI 41.0
[2017-09-05] MEDS: ACETAMINOPHEN 325 MG TABLET (FP) PO PRN ×3 (05:26→15:22)
[2017-09-05 07:13] LABS: BASO % 0.8 % (0-2.0); EOS % 6.4 % (0-4.5); HEMATOCRIT 29.2 % (32.4-45.2); HEMOGLOBIN 9.4 GM/dL (10.7-15.3); LYMPH % 40.4 % (8-40); MEAN CELL VOLUME 65.7 fl (80-96); MEAN PLT VOLUME 9.7 fl (7.5-11.1); MONO % 7.4 % (3.8-10.2); PLATELET COUNT 326 K/MM3 (134-434); RBC 4.45 M/mm3 (3.60-5.2); RDW 19.6 % (11.6-15.6); WHITE BLOOD COUNT 4.7 K/mm3 (4.0-10.0)
[2017-09-05 07:47] LABS: CHLORIDE 104 mmol/L (98-107); POTASSIUM 4.3 mmol/L (3.5-5.1); SODIUM 140 mmol/L (136-145)
[2017-09-05 07:58] LABS: ALBUMIN 1.2 g/dl (3.4-5.0); ALK PHOS 79 U/L (45-117); ANION GAP 8 (8-16); BILIRUBIN,TOTAL 0.3 mg/dL (0.2-1.0); BLOOD UREA NITROGEN 8 mg/dL (7-18); CALCIUM 8.7 mg/dL (8.5-10.1); CHOLESTEROL 185 mg/dL (50-200); CO2 28 mmol/L (21-32); CREATININE 0.7 mg/dL (0.55-1.02); GLUCOSE,RANDOM 89 mg/dL (74-106); HDL CHOLESTEROL 34 mg/dL (40-60); LDL CHOLESTEROL (ONLY SJRH) 132 mg/dL (5-100); MAGNESIUM 1.8 mg/dL (1.8-2.4); SGOT/AST 67 U/L (15-37); SGPT/ALT 70 U/L (12-78); TOT PROT 6.8 g/dl (6.4-8.2); TRIGLYCERIDES 56 mg/dL (35-160)
[2017-09-05] MEDS: HYDROCHLOROTHIAZIDE 25 MG TABLET (FP) PO SCH (09:23)
[2017-09-05] MEDS: amLODIPine BESYLATE 5 MG TABLET (FP) PO SCH (09:24)
[2017-09-05] MEDS ORDERED: CYCLOBENZAPRINE HCL 5 MG TABLET PO SCH (11:15)
[2017-09-05] MEDS ORDERED: CYCLOBENZAPRINE HCL 10 MG TABLET (FP) PO SCH (11:19)
[2017-09-05] MEDS ORDERED: traMADol HCL 50 MG TABLET PO ONE ×2 (12:20→17:15)
--- NOTE | 2017-09-05 16:57 | PN ---
Progress Note (short form) - Note Progress Note: c/o L shoulder pain that radiates to the chest. difficulty moving the arm. does carry around a large child at home often. does not work. denies fever, chills, N /V/C/D, blurred vision, tinnitus Current Medications Generic Name Dose Route Start Last Admin Trade Name Freq PRN Reason Stop Dose Admin Acetaminophen 650 mg 09/04/17 20:54 09/05/17 15:22 Tylenol - PO 650 mg Q4H PRN Administration PAIN LEVEL 1 - 3 Amlodipine Besylate 5 mg 09/05/17 10:00 09/05/17 09:24 Norvasc - PO 5 mg DAILY YARY Administration Cyclobenzaprine HCl 5 mg 09/05/17 11:19 Flexeril - PO DAILY YARY Hydrochlorothiazide 25 mg 09/05/17 10:00 09/05/17 09:23 Hctz - PO 25 mg DAILY YARY Administration Last Vital Signs Temp Pulse Resp BP Pulse Ox 98.4 F 92 H 18 116/55 98 09/05/17 14:59 09/05/17 14:59 09/05/17 14:59 09/05/17 14:59 09/05/17 07:15 General NAD CV S1 S2 RRR no murmur/rub/gallop +chest wall tenderness Lungs CTA B/L no wheezing/rales/rhonchi Abdomen soft nT/ND obese Extremities L shoulder with decreased ROM on passive movement. unable to lift > 45degrees on abduction and ant flexion. +muscle spasm over scapula. no bone point tenderness along cervical spine. good ROM at elbow. pulse 2+ CBCD WBC 4.7 K/mm3 (4.0-10.0) 09/05/17 05:10 RBC 4.45 M/mm3 (3.60-5.2) 09/05/17 05:10 Hgb 9.4 GM/dL (10.7-15.3) L 09/05/17 05:10 Hct 29.2 % (32.4-45.2) L 09/05/17 05:10 MCV 65.7 fl (80-96) L 09/05/17 05:10 MCHC 32.0 g/dl (32.0-36.0) 09/05/17 05:10 RDW 19.6 % (11.6-15.6) H 09/05/17 05:10 Plt Count 326 K/MM3 (134-434) 09/05/17 05:10 MPV 9.7 fl (7.5-11.1) 09/05/17 05:10 CMP Sodium 140 mmol/L (136-145) 09/05/17 05:10 Potassium 4.3 mmol/L (3.5-5.1) 09/05/17 05:10 Chloride 104 mmol/L (98-107) 09/05/17 05:10 Carbon Dioxide 28 mmol/L (21-32) 09/05/17 05:10 Anion Gap 8 (8-16) 09/05/17 05:10 BUN 8 mg/dL (7-18) 09/05/17 05:10 Creatinine 0.7 mg/dL (0.55-1.02) 09/05/17 05:10 Creat Clearance w eGFR > 60 (>60) 09/05/17 05:10 Calcium 8.7 mg/dL (8.5-10.1) 09/05/17 05:10 Total Bilirubin 0.3 mg/dL (0.2-1.0) D 09/05/17 05:10 AST 67 U/L (15-37) H 09/05/17 05:10 ALT 70 U/L (12-78) 09/05/17 05:10 Alkaline Phosphatase 79 U/L (45-117) 09/05/17 05:10 Total Protein 6.8 g/dl (6.4-8.2) 09/05/17 05:10 Albumin 1.2 g/dl (3.4-5.0) L 09/05/17 05:10 A/P 42yo F wtih PMH HIV, HTN and anxiety presented to the ER with CP radiating to the LUE 1. CP- likely muscular with actually pain from shoulder radiating to chest. no events on cardiac monitoring. cardiac enzymes neg x3. can d/c clinical research monitor 2. HTN urgency- not taken medications at home. started on HCTZ/norvasc with good response. dietary changes 3. L shoulder pain- likely muscular. no tingling in the hands and good pulses. check XR. start flexeril. pain controlled with tylenol 4. Microcytic anemia- Hgb stable. likely iron deficient. iron studies pending 5. Obesity- BMI 41. dietary changes. exercise counselling. with goal to loose 1 lb/week 6. HIV on HARRT-medication is not available here. as per pharmacy we do not have alternative that is similar. pt will have to bring in own from home 7. DVT ppx- EAM 8. awaiting official read on XR. plan for d/c in the AM. pt verbalized understanding Visit type - Emergency Visit Emergency Visit: Yes ED Registration Date: 09/04/17 Care time: The patient presented to the Emergency Department on the above date and was hospitalized for further evaluation of their emergent condition. - New Patient This patient is new to me today: Yes Date on this admission: 09/05/17 - Critical Care Critical Care patient: No - Discharge Referral Referred to [facility] Med P.C.: No
[2017-09-05] MEDS ORDERED: CYCLOBENZAPRINE HCL 10 MG TABLET (FP) PO ONE (17:00)
[2017-09-05] MEDS: CYCLOBENZAPRINE HCL 10 MG TABLET (FP) PO SCH (21:24)
[2017-09-06] MEDS: CYCLOBENZAPRINE HCL 10 MG TABLET (FP) PO SCH ×3 (06:04→21:00)
[2017-09-06 08:07] LABS: SERUM IRON SATURATION 25 % (15-55); TOTAL IRON BINDING CAPACITY 331 ug/dL (250-450); TRANSFERRIN 281 mg/dL (200-370); UIBC 249 ug/dL (131-425)
[2017-09-06] MEDS: amLODIPine BESYLATE 5 MG TABLET (FP) PO SCH (09:31)
[2017-09-06] MEDS: HYDROCHLOROTHIAZIDE 25 MG TABLET (FP) PO SCH (09:31)
[2017-09-06] MEDS: ACETAMINOPHEN 325 MG TABLET (FP) PO PRN ×2 (13:50→19:57)
--- NOTE | 2017-09-06 14:03 | CON.ORTH ---
Consult Reason for Consultation:: left shoulder/arm pain - Past Medical History ...LMP: 08/13/17 ...: No - Alcohol/Substance Use Hx Alcohol Use: No - Smoking History Smoking history: Never smoked Have you smoked in the past 12 months: No Home Medications - Allergies Allergies/Adverse Reactions: Allergies Allergy/AdvReac Type Severity Reaction Status Date / Time No Known Allergies Allergy Verified 09/04/17 11:58 - Home Medications Home Medications: Ambulatory Orders Elviteg/Cob/Emtri/Tenof Alafen [Genvoya Tablet] 1 tab PO DAILY 09/04/17 Family Disease History - Family Disease History Family Disease History: Heart Disease: Grandparent (maternal GM - d. [place], age 50s ), Other: Father (esrd on dialysis), Mother (arthritis), Daughter (2 daughters ( age 21- 5 kids (age 6, 4, 2, twin 1-yr olds), age 17)) Physical Exam for Ortho Vital Signs: Vital Signs Temperature 98.8 F 09/06/17 13:49 Pulse Rate 90 09/06/17 13:49 Respiratory Rate 18 09/06/17 13:49 Blood Pressure 125/66 09/06/17 13:49 O2 Sat by Pulse Oximetry (%) 96 09/06/17 07:11 Labs: CBC, BMP 09/05/17 05:10 09/05/17 05:10 INR, PTT INR 1.04 (0.82-1.09) 09/04/17 13:50 - Upper Extremity Shoulder: Yes: Left, Limited ROM, Pain, Swelling, Tenderness, Other (+ttp, passive rom ff 90, ER- 30, IR 30, abd 90, + neer, + kirkpatrick, nvi) Imaging - Results X-ray: Report Reviewed, Image Reviewed Assessment/Plan 42 y/o F w/PMH of HIV (VL 1000, CD4 743 as per pt in February 2017), HTN, panic attacks, presents to the ER for chest pain and L arm pain. Pt has had L arm pain for 2 days that is sharp and starts at shoulder and is rated at a 9/ 10. Noets pain radiates down to her left hand. + numbness/tingling into all 5 fingers a/p Cervical radiculopathy vs acute shoulder bursitis xrays of c-spine lido/depo injection ordered for left shoulder, will inject tomorrow am PT eval NSAIDs, muscle relaxor, pain meds will follow d/w Dr. Kim
--- NOTE | 2017-09-06 14:55 | PN ---
Progress Note (short form) - Note Progress Note: c/o L shoulder pain. mild improvement with muscle relaxer. difficulty moving arm. no more CP denies fever, chills, N/V/C/D, blurred vision, tinnitus Current Medications Generic Name Dose Route Start Last Admin Trade Name Freq PRN Reason Stop Dose Admin Acetaminophen 650 mg 09/04/17 20:54 09/06/17 13:50 Tylenol - PO 650 mg Q4H PRN Administration PAIN LEVEL 1 - 3 Amlodipine Besylate 5 mg 09/05/17 10:00 09/06/17 09:31 Norvasc - PO 5 mg DAILY YARY Administration Celecoxib 200 mg 09/06/17 22:00 Celebrex - PO BID YARY Cyclobenzaprine HCl 5 mg 09/05/17 22:00 09/06/17 13:50 Flexeril - PO 5 mg TID YRAY Administration Ferrous Sulfate 325 mg 09/06/17 17:30 Feosol - PO BIDWM YARY Hydrochlorothiazide 25 mg 09/05/17 10:00 09/06/17 09:31 Hctz - PO 25 mg DAILY YARY Administration Methylprednisolone Acetate 80 mg 09/07/17 10:00 Depo-Medrol - IAR 09/07/17 10:01 ONCE ONE Last Vital Signs Temp Pulse Resp BP Pulse Ox 98.8 F 90 18 125/66 96 09/06/17 13:49 09/06/17 13:49 09/06/17 13:49 09/06/17 13:49 09/06/17 07:11 General NAD CV S1 S2 RRR no murmur/rub/gallop +chest wall tenderness Extremities L shoulder with decreased ROM on passive movement. unable to lift > 45degrees on abduction and ant flexion. +muscle spasm over scapula. no bone point tenderness along cervical spine. good ROM at elbow. pulse 2+ A/P 42yo F wtih PMH HIV, HTN and anxiety presented to the ER with CP radiating to the LUE 1. CP- likely muscular with actually pain from shoulder radiating to chest. no events on cardiac monitoring. cardiac enzymes neg x3. 2. HTN urgency-improved. on HCTZ/norvasc with good response. dietary changes 3. L shoulder dislocation-XR showing possible posterior dislocation. ortho consulted. cont flexeril. pain controlled with tylenol 4. Iron def anemia- Hgb stable. start iron supplements for ferritin <20. counseled onrisks of iron supplements. will need repeat iron stuides in 3 months 5. Obesity- BMI 41. dietary changes. exercise counselling. with goal to loose 1 lb/week 6. HIV on HARRT-medication is not available here. as per pharmacy we do not have alternative that is similar. pt will have to bring in own from home 7. DVT ppx- EAM 8. d/c planning pending orhto recommendations Visit type - Emergency Visit Emergency Visit: Yes ED Registration Date: 09/04/17 Care time: The patient presented to the Emergency Department on the above date and was hospitalized for further evaluation of their emergent condition. - New Patient This patient is new to me today: No - Critical Care Critical Care patient: No - Discharge Referral Referred to [facility] Med P.C.: No
[2017-09-06] MEDS: FERROUS SO4 325 MG TABLET (FP) PO SCH (17:19)
[2017-09-06] MEDS ORDERED: PT OWN MED DRAWER 7, Y5N ONE ×2 (18:38→21:45)
[2017-09-06] MEDS: CELECOXIB 200 MG CAPSULE PO SCH (21:53)
--- NOTE | 2017-09-06 21:54 | EKG ---
Test Reason : Blood Pressure : / mmHG Vent. Rate : 070 BPM Atrial Rate : 070 BPM P-R Int : 164 ms QRS Dur : 088 ms QT Int : 406 ms P-R-T Axes : 035 036 042 degrees QTc Int : 438 ms NORMAL SINUS RHYTHM MINIMAL VOLTAGE CRITERIA FOR LVH, MAY BE NORMAL VARIANT BORDERLINE ECG NO PREVIOUS ECGS AVAILABLE Confirmed by ROBYN PORTILLO MD ([id number]) on 09/06/2017 9:53:57 PM Referred By: BHASKAR Confirmed By:ROBYN PORTILLO MD
[2017-09-07] MEDS: CYCLOBENZAPRINE HCL 10 MG TABLET (FP) PO SCH (06:34)
[2017-09-07] MEDS: ACETAMINOPHEN 325 MG TABLET (FP) PO PRN (06:46)
[2017-09-07] MEDS: FERROUS SO4 325 MG TABLET (FP) PO SCH (08:00)
[2017-09-07] MEDS ORDERED: ACETAMINOPHEN 325 MG TABLET (FP) PO PRN ×2 (08:03→14:55)
[2017-09-07] MEDS ORDERED: PT OWN MED DRAWER 7, Y5N ONE (08:09)
[2017-09-07] MEDS ORDERED: LIDOCAINE HCL 1%, 10 MG/ML (20ML VIAL) ONE (09:09)
[2017-09-07] MEDS ORDERED: LIDOCAINE HCL 1%, 10 MG/ML (50 mL VIAL) SQ ONE (09:22)
--- NOTE | 2017-09-07 09:37 | PN ---
Progress Note (short form) - Note Progress Note: Ortho Pt seen and examined, consented for lido/depo injection into left shoulder PE- +ttp, incr rom, strength 3/5, nvi xrays of c-spine show no acute pathology a/p- left shoulder bursitis- NOT dislocated, possible cervical radiculopathy consent obtained, left shoulder marked, time out performed, under sterile technique left subacromial space injected with lido/depo, tolerated well will take 3-4 days to take full effect ok to d/c from ortho pov f/u in 2 weeks as oupt d/w Dr. Kim
[2017-09-07] MEDS ORDERED: amLODIPine BESYLATE 5 MG TABLET (FP) PO SCH (10:00)
[2017-09-07] MEDS ORDERED: HYDROCHLOROTHIAZIDE 25 MG TABLET (FP) PO SCH (10:00)
[2017-09-07] MEDS ORDERED: methylPREDNISolone ACET (DEPO) 80 MG/1 ML VIAL IAR ONE (10:00)
[2017-09-07 10:11] VITALS: BP 116/65; PULSE 88; TEMP 98.2
[2017-09-07] MEDS ORDERED: oxyCODONE HCL 5 MG TABLET PO ONE (10:30)
[2017-09-07] MEDS ORDERED: ACETAMINOPHEN 325 MG TABLET (FP) PO ONE (10:30)
[2017-09-07] MEDS: CELECOXIB 200 MG CAPSULE PO SCH (10:32)
--- NOTE | 2017-09-07 12:34 | PN ---
Teaching Attending Note Name of Resident: Peggy Campbell ATTENDING PHYSICIAN STATEMENT I saw and evaluated the patient. I reviewed the resident's note and discussed the case with the resident. I agree with the resident's findings and plan as documented. SUBJECTIVE:c/o pain at injection site. no repeat episdoes of CP. dnies CP, SOB, fever, chills, N/V/C/D OBJECTIVE: Last Vital Signs Temp Pulse Resp BP Pulse Ox 98.2 F 88 18 116/65 98 09/07/17 10:10 09/07/17 10:10 09/07/17 10:10 09/07/17 10:10 09/07/17 10:10 General NAD CV S1 S2 RRR no murmur/rub/gallop +chest wall tenderness Extremities refused evaluation of the arm A/P 42yo F wtih PMH HIV, HTN and anxiety presented to the ER with CP radiating to the LUE 1. CP- likely muscular with actually pain from shoulder radiating to chest. no events on cardiac monitoring. cardiac enzymes neg x3. 2. HTN urgency-improved. on HCTZ/norvasc with good response. dietary changes 3. L shoulder dislocation vs brusitis-s/p depo injection into the shoulder. started on celexicob BID. cont flexeril prn. will need to f/u with ortho in 2 weeks for further management. 4. Iron def anemia- Hgb stable. on iron supplement. counseled on risks of iron supplements. will need repeat iron stuides in 3 months 5. Obesity- BMI 41. dietary changes. exercise counselling. with goal to loose 1 lb/week 6. HIV on HARRT-medication is not available here. as per pharmacy we do not have alternative that is similar. pt will have to bring in own from home 7. DVT ppx- EAM 8. d/c home
--- NOTE | 2017-09-07 14:18 | DS ---
Physical Exam: SUBJECTIVE: Patient seen and examined. She is still complaining of left shoulder pain. Denies chest pain, SOB, palpitations. OBJECTIVE: Vital Signs Period Temp Pulse Resp BP Sys/Nunez Pulse Ox Last 24 Hr 98.2 F-98.4 F 88-101 18-18 99-116/48-65 97-98 PHYSICAL EXAM GENERAL: The patient is awake, alert, and fully oriented, in no acute distress, lying comfortably in bed. HEAD: Normal with no signs of trauma. EYES: extraocular movements intact, sclera anicteric. ENT: oropharynx clear without exudates, moist mucous membranes. NECK: Trachea midline, full range of motion, supple. LUNGS: Breath sounds equal, clear to auscultation bilaterally, no wheezes, no crackles, no accessory muscle use. HEART: Regular rate and rhythm, S1, S2 without murmur, rub or gallop. ABDOMEN: Obese, soft, nontender, nondistended, normoactive bowel sounds, no guarding, no rebound, no hepatosplenomegaly, no masses. EXTREMITIES: 2+ pulses, warm, no edema, tenderness over left shoulder and arm. Limited ROM in shoulder due to pain, nl ROM in elbow and wrist. NEUROLOGICAL: Cranial nerves II through XII grossly intact. Normal speech, gait not observed. PSYCH: Normal mood, normal affect. SKIN: Warm, dry, normal turgor, no rashes. LABS HOSPITAL COURSE: Date of Admission:09/06/17 Date of Discharge: 09/07/17 Minutes to complete discharge: 35 Discharge Summary Reason For Visit: CHEST PAIN; PAIN TO LEFT EXTREMITY Current Active Problems Bursitis (Acute) Chest pain (Acute) Left arm pain (Acute) Hospital Course: 42 y/o F with PMH of HIV, HTN, anxiety disorder presented to the hospital complaining of chest pain and left shoulder and arm pain for 2 days. It is sharp and starts at shoulder and is rated at a 9/10. She was seen at the [address] [place] [address] to establish care there and was found to have elevated BP and developed CP and SOB and was told to come to the ER. She states her chest pain starts in her L upper chest near her shoulder and is also rated as a 9/10 and sharp with radiation down her left arm. It started all of sudden while in the clinic. Exertion did not make it worse. She also notes that she has not taken her BP meds since moving here. She denies n/v/f/c, diaphoresis, change in vision, ringing in ears, light-headedness, abd pain, cough, lower extremity edema, dysuria, hematuria, change in bowel movements, recent travel history, sick contacts. In the emergency room she found to have elevated BP: 172.98 followed by 195/98, no elevation of troponin. She was given Norvasc, Toradol, Ultram, Tylenol. Hospital course: The patient was placed on observation for atypical chest pain, r/o ACS. We followed serial troponins that were negative, EKG: NSR, no lynsey/std, no QtC prolongation. Her chest pain was due to bursitis in her left shoulder, possible radiculopathy from the spine. We consulted Orthopedic surgery, she had injection to left subacromial space injected with Depo-medrol. Imaging studies: chest x ray, shoulder and humerus x ray, c spine x ray were negative. She was discharged with recommendation to take Flexeril, OTC pain medications and follow up with Dr Kim in 2 weeks. She was also avdised to avoid heavy lifting and exercise range of motion of her left shoulder. HTN: We controlled her BP. The patient was discharged on Norvasc 5 mf qd and HCTZ 25 mg qd. Iron def anemia- Hgb stable. on iron supplement. counseled on risks of iron supplements. will need repeat iron stuides in 3 months Obesity- BMI 41, counseled about weight loss, dietary modification and exercise. Condition: Good - Instructions Diet, Activity, Other Instructions: You were admitted to the hospital for chest pain. We suspected that it may be related to your heart but all testes were negative and that was rule out. We also noticed that you had shoulder pain. It was diagnosed as bursitis- inflammation of your shoulder that is treated by injection. Please try to avoid lifting heavy object with your hand, try range of motion exercises of your shoulder, apply ice if needed and anti inflammatory medications like Motrin when you have pain. We also prescribed Flexeril for muscle spasms and Celecoxib for pain. Take flexeril as needed for muscle spasms. This Medication can cause drowsiness so no driving or operating heavy machinery while using. We also noticed that you were hypertensive and we started two medications: Norvasc and HCTZ that we would like you to continue after leaving the hospital. You were also started on iron supplements. These may turn your stools black and can cause constipation. Have your iron levels repeated in 3 months. Please see your primary care physician in 1-2 week. Follow up with orthopedic surgeon in 2 weeks. If you have severe, pain, chest pain, shortness of breath, dizziness or worsening of any of your symptoms come back to emergency room as soon as possible. Referrals: Isac Huang PA [Physician Transportation Aide] - 2 Weeks Nikky Chowdhury MD [Primary Care Provider] - 2 Weeks Disposition: HOME - Home Medications Comprehensive Discharge Medication List: Ambulatory Orders Elviteg/Cob/Emtri/Tenof Alafen [Genvoya Tablet] 1 tab PO DAILY 09/04/17 Amlodipine Besylate [Norvasc -] 5 mg PO DAILY #30 tablet 09/07/17 Celecoxib [CeleBREX -] 200 mg PO BID #60 capsule 09/07/17 Cyclobenzaprine HCl [Flexeril -] 5 mg PO TID #90 tablet 09/07/17 Ferrous Sulfate [Feosol] 325 mg PO BIDWM #60 ud 09/07/17 Hydrochlorothiazide [Hctz -] 25 mg PO DAILY #30 tablet 09/07/17 Problem List - Problems (1) Bursitis Code(s): M71.9 - BURSOPATHY, UNSPECIFIED (2) Chest pain Code(s): R07.9 - CHEST PAIN, UNSPECIFIED Qualifiers: Chest pain type: unspecified Qualified Code(s): R07.9 - Chest pain, unspecified (3) Hypertension Code(s): I10 - ESSENTIAL (PRIMARY) HYPERTENSION (4) Left arm pain Code(s): M79.602 - PAIN IN LEFT ARM (5) Shoulder pain, acute Code(s): M25.519 - PAIN IN UNSPECIFIED SHOULDER (6) HIV infection, asymptomatic Code(s): Z21 - ASYMPTOMATIC HUMAN IMMUNODEFICIENCY VIRUS INFECTION STATUS This patient is new to me today: No Emergency Visit: Yes ED Registration Date: 09/06/17 Care time: The patient presented to the Emergency Department on the above date and was hospitalized for further evaluation of their emergent condition. Critical Care patient: No - Discharge Referral Referred to [facility] No
== END 2017-09-07 14:55 | disposition home or self-care (01) | DRG 351 ==
LOC: JER 13:12 → JERBED 14:34 → J4W 20:34 → OBSVTOIN 09-06 14:34
PROVIDERS: ADMIT Internal Medicine; ATTEND Internal Medicine
PROC: 3E0U33Z Introduction of Anti-inflammatory into Joints, Percutaneous Approach (ICD-10-PCS; principal; 2017-09-07)
PROC: 3E0U3BZ Introduction of Anesthetic Agent into Joints, Percutaneous Approach (ICD-10-PCS; 2017-09-07)
DX: M75.52 Bursitis of left shoulder (principal); M54.12 Radiculopathy, cervical region; R07.89 Other chest pain; Z68.41 Body mass index [BMI] 40.0-44.9, adult; E66.9 Obesity, unspecified; I16.0 Hypertensive urgency; F41.9 Anxiety disorder, unspecified; F41.0 Panic disorder [episodic paroxysmal anxiety]; Z21 Asymptomatic human immunodeficiency virus [HIV] infection status; Z96.653 Presence of artificial knee joint, bilateral; D50.9 Iron deficiency anemia, unspecified; M79.602 Pain in left arm
CPT/HCPCS: 36415; 71046-TC-FY; 72050-TC-FY; 73030-TC-LT-FY; 73060-TC-LT-FY; 73070-TC-LT-FY; 80053; 80061; 81003; 82550; 82728; 83540; 83550; 83721; 83735; 83880; 84443; 84466; 84484; 84703; 85025; 85379; 85610; 85651; 86140; 93005; 93010; 97116-GP; 97161-GP; 99285-25; G0378; J0131

== ENCOUNTER → 2019-02-15 | Outpatient (CLI) | payer OTHER | LOC: YHH 15:54 ==

== ENCOUNTER 2019-08-24 11:45 | Emergency (ER) | payer OTHER ==
[2019-08-24 12:13] VITALS: BP 131/83; PULSE 80; TEMP 97.9; BMI 38.7
--- NOTE | 2019-08-24 12:56 | EKG ---
Test Reason : Blood Pressure : / mmHG Vent. Rate : 075 BPM Atrial Rate : 075 BPM P-R Int : 176 ms QRS Dur : 090 ms QT Int : 404 ms P-R-T Axes : 057 036 048 degrees QTc Int : 451 ms NORMAL SINUS RHYTHM NORMAL ECG WHEN COMPARED WITH ECG OF 27-APR-2019 03:23, NO SIGNIFICANT CHANGE WAS FOUND Confirmed by MD MAEVE, IRENE ([id number]) on 08/24/2019 12:56:28 PM Referred By: Confirmed By:IRENE MCFARLANE MD
--- NOTE | 2019-08-24 13:11 | PDOC ---
History of Present Illness - General Chief Complaint: Syncope/Near Syncope Stated Complaint: FALL Time Seen by Provider: 08/24/19 12:43 - History of Present Illness Initial Comments: 08/24/19 13:10 CHIEF COMPLAINT: syncope HISTORY OF PRESENT ILLNESS: 44 yo F with hx of presents to ED s/p syncopal episode last night. Patient reports htat she finished urinating, stood up, an dfell and hit her head against the wall last night at an unknown time Patient states the fall was witnessed by her daughter and she did have LOC for "two hours." Patient rpeorts injury to R forehead above R eyebrow. Patient reports frontal headache and pain to the back of her head now. Patient states she did not seek care until today because states she feels weak and dizzy now. \\Denies chest pain/pressure/sob/f/c. Denies any change in vision. Patient reports that she has been adherent to her usual meds. Patient denies etoh/drug use/smoking cigarettes. Patient states she only came because she was sent by the [facility] but that she "is fine, you can send me home if you want." Patient states she has 3-4 similar episodes but has not followed with neuro yet . No recent travel or sick contacts. PAST MEDICAL HISTORY: Denies past medical history FAMILY HISTORY: Denies SOCIAL HISTORY: Denies tobacco, alcohol, illicit drug use. SURGICAL HISTORY: Denies ALLERGIES: No known drug allergies REVIEW OF SYSTEMS General/Constitutional: Denies fever or chills. Denies weakness, weight change. HEENT: Denies change in vision. Denies ear pain or discharge. Denies sore throat. Cardiovascular: Denies chest pain or shortness of breath. Respiratory: Denies cough, wheezing, or hemoptysis. Gastrointestinal: Denies nausea, vomiting, diarrhea or constipation. Denies rectal bleeding. Genitourinary: Denies dysuria, frequency, or change in urination. Musculoskeletal: Denies joint or muscle swelling or pain. Denies neck or back pain. Skin and breasts: Denies rash or easy bruising. Neurologic: Denies headache, vertigo, loss of consciousness, or loss of sensation. Psychiatric: Denies depression or anxiety. PHYSICAL EXAM General Appearance: Well-appearing, appropriately dressed. No apparent distress, no intoxication. HEENT: EOMI, PERRLA, normal ENT inspection, normal voice, TMs normal, pharynx normal. No conjunctival pallor. No photophobia, scleral icterus. Neck: Supple. Trachea midline. No tenderness, rigidity, carotid bruit, stridor, lymphadenopathy, or thyromegaly. Respiratory/Chest: Lungs CTAB. No shortness of breath, chest tenderness, respiratory distress, accessory muscle use. No crackles, rales, rhonchi, stridor, wheezing, dullness Cardiovascular: RRR. S1, S2. No JVD, murmur, bradycardia, tachycardia. Vascular Pulses: Dorsalis-Pedis (R): 2+, Dorsalis-Pedis (L): 2+ Gastrointestinal/Abdominal: Normal bowel sounds. Abdomen soft, non-distended. No tenderness or rebound tenderness. No organomegaly, pulsatile mass, guarding, hernia, hepatomegaly, splenomegaly. Lymphatic: No adenopathy, tenderness. Musculoskeletal/Extremities: Normal inspection. FROM of all extremities, normal capillary refill. Pelvis Stable. No CVA tenderness. No tenderness to extremities, pedal edema, swelling, erythema or deformity. Integumentary: Appropriate color, dry, warm. No cyanosis, erythema, jaundice or rash Neurologic: stockholder II-XII intact. Fully oriented, alert. Appropriate mood/affect. Motor strength 5/5. No appreciable EOM palsy, facial droop or sensory deficit.CHIEF COMPLAINT: HISTORY OF PRESENT ILLNESS: No recent travel or sick contacts. PAST MEDICAL HISTORY: Denies past medical history FAMILY HISTORY: Denies SOCIAL HISTORY: Lives at home with ____. Occupation: . Denies tobacco, alcohol, illicit drug use. SURGICAL HISTORY: Denies ALLERGIES: No known drug allergies REVIEW OF SYSTEMS General/Constitutional: Denies fever or chills. Denies weakness, weight change. HEENT: Denies change in vision. Denies ear pain or discharge. Denies sore throat. Cardiovascular: Denies chest pain or shortness of breath. Respiratory: Denies cough, wheezing, or hemoptysis. Gastrointestinal: Denies nausea, vomiting, diarrhea or constipation. Denies rectal bleeding. Genitourinary: Denies dysuria, frequency, or change in urination. Musculoskeletal: Denies joint or muscle swelling or pain. Denies neck or back pain. Skin and breasts: Denies rash or easy bruising. Neurologic: Denies headache, vertigo, loss of consciousness, or loss of sensation. Psychiatric: Denies depression or anxiety. Endocrine: Denies increased thirst. Denies abnormal weight change. Hematologic/Lymphatic: Denies anemia, easy bleeding, or history of blood clots. Allergic/Immunologic: Denies hives or skin allergy. Denies latex allergy. PHYSICAL EXAM General Appearance: Well-appearing, appropriately dressed. No apparent distress, no intoxication. HEENT: EOMI, PERRLA, normal ENT inspection, normal voice, TMs normal, pharynx normal. No conjunctival pallor. No photophobia, scleral icterus. Neck: Supple. Trachea midline. No tenderness, rigidity, carotid bruit, stridor, lymphadenopathy, or thyromegaly. Respiratory/Chest: Lungs CTAB. No shortness of breath, chest tenderness, respiratory distress, accessory muscle use. No crackles, rales, rhonchi, stridor, wheezing, dullness Cardiovascular: RRR. S1, S2. No JVD, murmur, bradycardia, tachycardia. Vascular Pulses: Dorsalis-Pedis (R): 2+, Dorsalis-Pedis (L): 2+ Gastrointestinal/Abdominal: Normal bowel sounds. Abdomen soft, non-distended. No tenderness or rebound tenderness. No organomegaly, pulsatile mass, guarding, hernia, hepatomegaly, splenomegaly. Lymphatic: No adenopathy, tenderness. Musculoskeletal/Extremities: Normal inspection. FROM of all extremities, normal capillary refill. Pelvis Stable. No CVA tenderness. No tenderness to extremities, pedal edema, swelling, erythema or deformity. Integumentary: Appropriate color, dry, warm. No cyanosis, erythema, jaundice or rash Neurologic: stockholder II-XII intact. Fully oriented, alert. Appropriate mood/affect. Motor strength 5/5. No appreciable EOM palsy, facial droop or sensory deficit.Advised parent to give medication as prescribed and follow up with trust mail clerk next week. Advised parents of signs and symptoms for return to ER; parents verbalized understanding and agrees to plan. 08/24/19 13:12 08/24/19 13:16 Past History - Past Medical History Allergies/Adverse Reactions: Allergies Allergy/AdvReac Type Severity Reaction Status Date / Time No Known Allergies Allergy Verified 06/09/17 00:56 Home Medications: Ambulatory Orders Diclofenac Sodium [Voltaren] 2 gm TP TID PRN #3 tube NS 04/13/19 Propranolol HCl [Propranolol HCl ER] 80 mg PO DAILY 04/27/19 Acetaminophen [Tylenol .Regular Strength -] 650 mg PO Q6H PRN #45 tablet 06/23/19 Amlodipine Besylate [Norvasc -] 1 tab PO DAILY #30 tablet 06/23/19 Bictegrav/Emtricit/Tenofov Ala [Biktarvy 50-200-25 mg Tablet] 1 each PO DAILY #30 tablet 06/23/19 Cyanocobalamin [Vitamin B12 -] 1,000 mcg PO DAILY #30 tablet 06/23/19 Docusate Sodium [Colace -] 1 cap PO TID PRN #90 capsule 06/23/19 Ferrous Sulfate [Feosol] 325 mg PO DAILY #30 tablet 06/23/19 Hydrochlorothiazide [Hctz -] 1 tab PO DAILY #30 tablet 06/23/19 Ketoconazole 2% Shampoo [Nizoral 2% Shampoo -] 1 applic TP Q72H #1 bottle 06/23/19 Meclizine HCl 12.5 mg PO BID PRN #20 tablet 06/23/19 Multivitamin,Ther and Minerals [Vitamin and Minerals] 1 each PO DAILY #30 tablet 06/23/19 Ergocalciferol (Vitamin D2) [Vitamin D2] 50,000 unit PO WEEKLY #4 capsule 07/28/19 Atorvastatin Ca [Lipitor] 10 mg PO HS #30 tablet 08/08/19 Hydrocodone/Acetaminophen [[place] 10-325 Tablet] 1 each PO BID PRN #60 tablet MDD 2 08/08/19 Clonazepam [Klonopin] 1 mg PO BID #60 tablet MDD 2 08/24/19 Doxepin HCl 50 mg PO HS #30 capsule 08/24/19 Fluoxetine HCl [Prozac] 60 mg PO AM #90 capsule MDD 3 08/24/19 Gabapentin 300 mg PO TID #90 capsule 08/24/19 Methyl Salicylate/Menthol Oint [Julio C-Duckworth -] 1 applic TP BID #1 tube 08/24/19 Olanzapine [Zyprexa -] 2.5 mg PO HS #30 tablet 08/24/19 Venlafaxine HCl ER [Effexor Xr -] 150 mg PO DAILY #30 cap.er.24h 08/24/19 Anemia: Yes (on iron) Asthma: No Cancer: No Cardiac Disorders: No CVA: No COPD: No DVT: No Diabetes: No GI Disorders: Yes (GERD) Disorders: No HTN: Yes (on meds) Hypercholesterolemia: Yes Liver Disease: No Seizures: No Thyroid Disease: No - Surgical History Abdominal Surgery: Yes (TUBAL LIGATION) Appendectomy: No Cardiac Surgery: No Cholecystectomy: No Orthopedic Surgery: Yes (2014-L knee replacement/arthritis; 2015- R knee replace/arthritis ([place])) - Immunization History Td Vaccination: Yes Immunization Up to Date: Yes - Psycho Social/Smoking Cessation Hx Smoking Status: No Smoking History: Unknown if ever smoked Years of Tobacco Use: 0 Have you smoked in the past 12 months: No Number of Cigarettes Smoked Daily: 0 Cigars Per Day: 0 Hx Alcohol Use: No Drug/Substance Use Hx: No Substance Use Type: None Hx Substance Use Treatment: No Cardiac Specific PMH - Complaint Specific PMHX Pacemaker: No *Physical Exam - Vital Signs Last Vital Signs Temp Pulse Resp BP Pulse Ox 97.9 F 80 16 131/83 100 08/24/19 12:11 08/24/19 12:11 08/24/19 12:11 08/24/19 12:11 08/24/19 12:11 Medical Decision Making - Medical Decision Making 08/24/19 13:16 44 yo F with hx of presents to ED s/p syncopal episode last night.
[2019-08-24 13:45] LABS: BASO % 0.5 % (0-2.0); EOS % 5.5 % (0-4.5); HEMATOCRIT 30.9 % (32.4-45.2); MCH 22.3 pg (25.7-33.7); MCHC 32.5 g/dl (32.0-36.0); MEAN CELL VOLUME 68.8 fl (80-96); MEAN PLT VOLUME 9.2 fl (7.5-11.1); PLATELET COUNT 391 K/MM3 (134-434); RBC 4.49 M/mm3 (3.60-5.2); RDW 17.8 % (11.6-15.6); WHITE BLOOD COUNT 5.9 K/mm3 (4.0-10.0)
[2019-08-24 14:27] LABS: ALBUMIN 3.7 g/dl (3.4-5.0); ALK PHOS 102 U/L (45-117); ANION GAP 5 MMOL/L (8-16); BILIRUBIN,TOTAL 0.4 mg/dL (0.2-1); BLOOD UREA NITROGEN 11.8 mg/dL (7-18); CALCIUM 9.7 mg/dL (8.5-10.1); CHLORIDE 102 mmol/L (98-107); CO2 29 mmol/L (21-32); GLUCOSE,RANDOM 82 mg/dL (74-106); POTASSIUM 5.3 mmol/L (3.5-5.1); SGOT/AST 51 U/L (15-37); SGPT/ALT 20 U/L (13-61); SODIUM 136 mmol/L (136-145); TOT PROT 8.5 g/dl (6.4-8.2)
== END 2019-08-24 13:52 | disposition left against medical advice (07) ==
LOC: JER 11:45
DX: S09.90XA Unspecified injury of head, initial encounter (principal); R55 Syncope and collapse; W18.39XA Other fall on same level, initial encounter; Y93.89 Activity, other specified; Y92.009 Unspecified place in unspecified non-institutional (private) residence as the place of occurrence of the external cause
CPT/HCPCS: 36415; 80053; 82550; 82553; 84484; 85025; 93005; 93010; 99284-25

== ENCOUNTER 2021-03-03 13:01 | Emergency (ER) | payer OTHER ==
[2021-03-03 15:48] LABS: BASO % 0.1 % (0-2.0); EOS % 8.1 % (0-4.5); HEMATOCRIT 27.5 % (32.4-45.2); LYMPH % 12.5 % (8-40); MCH 20.5 pg (25.7-33.7); MCHC 32.5 g/dl (32.0-36.0); MEAN CELL VOLUME 62.9 fl (80-96); MEAN PLT VOLUME 9.2 fl (7.5-11.1); NEUT % 74.3 % (42.8-82.8); PLATELET COUNT 350 10^3/uL (134-434); RBC 4.38 M/mm3 (3.60-5.2); RDW 18.9 % (11.6-15.6); WHITE BLOOD COUNT 7.1 K/mm3 (4.0-10.0)
[2021-03-03 16:10] LABS: BLOOD UREA NITROGEN 12.5 mg/dL (7-18)
[2021-03-03 16:11] LABS: ALBUMIN 3.2 g/dl (3.4-5.0)
[2021-03-03 16:14] LABS: CREATININE 1.1 mg/dL (0.55-1.3)
[2021-03-03 16:15] LABS: BILIRUBIN,TOTAL 0.4 mg/dL (0.2-1); TOT PROT 7.2 g/dl (6.4-8.2)
[2021-03-03 17:06] LABS: ERYTHROCYTE SEDIMENTATION RATE 42 mm/hr (0-20)
[2021-03-03] MEDS ORDERED: ACETAMINOPHEN 500 MG TABLET (FP) PO ONE (18:14)
[2021-03-03] MEDS ORDERED: ACETAMINOPHEN 325 MG TABLET (FP) ONE (18:26)
[2021-03-03] MEDS ORDERED: ACETAMINOPHEN 1000 MG/100 ML VIAL (NON FORMULARY) IVPB ONE (21:22)
[2021-03-03] MEDS ORDERED: ACETAMINOPHEN INJECTION 100 ML IVPB ONE (21:55)
[2021-03-04 00:46] VITALS: BP 101/52; PULSE 94; TEMP 98.2
== END 2021-03-04 00:30 | disposition short-term general hospital (02) ==
LOC: JER 13:01
PROC: 3E0333Z Introduction of Anti-inflammatory into Peripheral Vein, Percutaneous Approach (ICD-10-PCS; principal; 2021-03-03)
DX: R21 Rash and other nonspecific skin eruption (principal)
CPT/HCPCS: 36415; 80053; 85025; 85651; 86140; 99284-25; C9803; J0131; U0003; U0005

== ENCOUNTER 2021-03-18 03:52 | Inpatient (IN) | payer OTHER ==
[2021-03-18 04:03] VITALS: BMI 28.7
[2021-03-18] MEDS ORDERED: SODIUM CHLORIDE 1,000 ML IV STA (05:42)
[2021-03-18] MEDS ORDERED: MAG HYDROX/AL HYDROX/SIMETH 30 ML UNIT-DOSE CUP PO ONE (05:42)
[2021-03-18] MEDS ORDERED: FAMOTIDINE 20 MG/50 ML IVPB 20 MG/50 ML MG IVPB ONE ×2 (05:42→05:59)
[2021-03-18] MEDS ORDERED: morphine CARPU-JECT 2 MG/1 ML DISP.SYRIN IVPUSH ONE (05:50)
[2021-03-18] MEDS ORDERED: morphine SULFATE 4 MG/ML VIAL ONE ×3 (05:59→12:07)
[2021-03-18] MEDS ORDERED: MAG HYDROX/AL HYDROX/SIMETH 30 ML UNIT-DOSE CUP ONE (05:59)
[2021-03-18 06:48] LABS: VENOUS BASE EXCESS -2.1 mmol/L (-2-2); VENOUS O2 SATURATION 66.5 % (70-80); VENOUS PCO2 38.2 mmHg (38-52); VENOUS PH 7.39 (7.310-7.410)
[2021-03-18 06:58] LABS: INR 1.09 (0.83-1.09); PROTHROMBIN TIME (PATIENT) 13.4 SEC (9.7-13.0)
[2021-03-18 07:01] LABS: ACTIVATED PTT 29.1 SECONDS (25.2-36.5)
[2021-03-18] MEDS ORDERED: morphine SULFATE 4 MG/ML VIAL IVPUSH ONE (07:01)
[2021-03-18 07:02] LABS: HEMATOCRIT 31.7 % (32.4-45.2); HEMOGLOBIN 10.1 GM/dL (10.7-15.3); MCH 20.1 pg (25.7-33.7); MEAN CELL VOLUME 62.9 fl (80-96); MEAN PLT VOLUME 8.1 fl (7.5-11.1); PLATELET COUNT 464 10^3/uL (134-434); RBC 5.04 M/mm3 (3.60-5.2); RDW 19.5 % (11.6-15.6); WHITE BLOOD COUNT 14.5 K/mm3 (4.0-10.0)
[2021-03-18 07:06] LABS: ALBUMIN 3.4 g/dl (3.4-5.0); BLOOD UREA NITROGEN 16.2 mg/dL (7-18); CALCIUM 9.4 mg/dL (8.5-10.1)
[2021-03-18 07:09] LABS: CREATININE 1.1 mg/dL (0.55-1.3)
[2021-03-18 07:11] LABS: BILIRUBIN,TOTAL 0.8 mg/dL (0.2-1); TOT PROT 7.8 g/dl (6.4-8.2)
[2021-03-18] MEDS ORDERED: ACETAMINOPHEN INJECTION 100 ML IVPB ONE (08:09)
[2021-03-18] MEDS ORDERED: ACETAMINOPHEN 1000 MG/100 ML VIAL (NON FORMULARY) IVPB ONE (08:52)
[2021-03-18 10:00] LABS: ANISOCYTOSIS 0; MACROCYTOSIS 0; OVALOCYTE 1+; PLATELET ESTIMATE NORMAL
[2021-03-18] MEDS ORDERED: morphine CARPU-JECT 8 MG/1 ML DISP.SYRIN IVPUSH ONE (12:02)
[2021-03-18] MEDS ORDERED: VANCOMYCIN 1 GM in D5W (PRE-DOCKED) 1,000 MG/250 ML IVPB ONE (13:41)
[2021-03-18] MEDS ORDERED: PIPERACILLIN/TAZOB 4.5 GM 4.5 GM in DEXTROSE 5%-WATER 100 ML IVPB ONE (13:41)
[2021-03-18] MEDS ORDERED: PIPERACILLIN/TAZOB 4.5 GM 4.5 GM/100 ML BAG IVPB ONE (13:48)
[2021-03-18] MEDS ORDERED: VANCOMYCIN 1 GRAM (PRE-DOCKED) 1,000 MG/250 ML BAG IVPB ONE (14:21)
[2021-03-18] MEDS: ENOXAPARIN NA (PORCINE) 40 MG/0.4 ML DISP.SYRIN SQ SCH (15:05)
[2021-03-18 15:06] LABS: EPI CELLS 10 /uL (0-25.1); HYALINE CASTS 0 /uL (0-3.1); URINE APPEARANCE CLEAR; URINE BACTERIA 42 /uL (0-1359); URINE BILIRUBIN NEGATIVE (NEGATIVE); URINE COLOR YELLOW; URINE GLUCOSE (UA) NEGATIVE (NEGATIVE); URINE KETONE NEGATIVE (NEGATIVE); URINE LEUK ESTERASE NEGATIVE (NEGATIVE); URINE NITRITE NEGATIVE (NEGATIVE); URINE PROTEIN NEGATIVE (NEGATIVE); URINE RBC 5 /uL (0-23.9); URINE UROBILINOGEN 0.2 mg/dL (0.2-1.0); URINE WBC 6 /uL (0-25.8)
[2021-03-18] MEDS ORDERED: DOCUSATE SODIUM 100 MG CAPSULE (FP) PO PRN (15:24)
[2021-03-18] MEDS ORDERED: PIPERACILLIN/TAZOB 3.375 GM 3.375 GM in DEXTROSE 5%-WATER - 50 ML IVPB SCH (18:00)
[2021-03-18] MEDS ORDERED: ENOXAPARIN NA (PORCINE) 40 MG/0.4 ML DISP.SYRIN SQ ONE (18:03)
[2021-03-18] MEDS ORDERED: PIPERACILLIN/TAZOB 3.375 GM 3.375 GM/50 ML BAG IVPB ONE (18:10)
[2021-03-18] MEDS: PIPERACILLIN/TAZOB 3.375 GM 3.375 GM in DEXTROSE 5%-WATER - 50 ML IVPB SCH (18:50)
[2021-03-18] MEDS ORDERED: ACETAMINOPHEN 325 MG TABLET (FP) PO PRN (21:11)
[2021-03-18] MEDS ORDERED: ACETAMINOPHEN 325 MG TABLET (FP) ONE (21:14)
[2021-03-18] MEDS ORDERED: KETOROLAC TROMETHAMINE 30 MG/1 ML VIAL IM ONE (21:32)
[2021-03-18] MEDS ORDERED: KETOROLAC TROMETHAMINE 30 MG/1 ML VIAL IVPUSH ONE (21:53)
[2021-03-18] MEDS ORDERED: KETOROLAC TROMETHAMINE 30 MG/1 ML VIAL ONE (21:58)
[2021-03-18] MEDS ORDERED: ATORVASTATIN CA 10 MG TABLET (FP) PO SCH (22:00)
[2021-03-18] MEDS ORDERED: MINERAL OIL/PET HY-PHL TOPICAL OINTMENT 454 GM JAR TP SCH (22:00)
[2021-03-18] MEDS: GABAPENTIN 300 MG CAPSULE PO SCH (23:43)
[2021-03-18] MEDS: FERROUS SO4 325 MG TABLET (FP) PO SCH (23:44)
[2021-03-19] MEDS ORDERED: MINERAL OIL/PETROLAT/WATER TOPICAL CREAM 113 GM JAR TP SCH (00:37)
[2021-03-19] MEDS ORDERED: PIPERACILLIN/TAZOBACTAM 3.375 GM VIAL IVPB ONE ×2 (03:10→10:32)
[2021-03-19] MEDS ORDERED: DEXTROSE 5%-WATER - 50 ML IVPB ONE ×2 (03:10→10:32)
[2021-03-19] MEDS: PIPERACILLIN/TAZOB 3.375 GM 3.375 GM in DEXTROSE 5%-WATER - 50 ML IVPB SCH ×2 (03:35→10:43)
[2021-03-19] MEDS: VANCOMYCIN 1 GRAM (PRE-DOCKED) 1,000 MG/250 ML BAG IVPB SCH ×2 (04:15→16:27)
[2021-03-19] MEDS: GABAPENTIN 300 MG CAPSULE PO SCH (06:39)
[2021-03-19] MEDS ORDERED: FLUoxetine HCL 20 MG CAPSULE PO SCH (07:00)
[2021-03-19] MEDS ORDERED: BICTEGRAV/EMTRICIT/TENOFOV (BIKTARVY) 50-200-25 MG TABLET PO SCH (08:00)
[2021-03-19 08:18] LABS: BASO % 0.4 % (0-2.0); EOS % 15.3 % (0-4.5); HEMATOCRIT 30.1 % (32.4-45.2); HEMOGLOBIN 9.7 GM/dL (10.7-15.3); LYMPH % 19.7 % (8-40); MCH 20.3 pg (25.7-33.7); MCHC 32.1 g/dl (32.0-36.0); MEAN CELL VOLUME 63.3 fl (80-96); MEAN PLT VOLUME 8.6 fl (7.5-11.1); MONO % 4.5 % (3.8-10.2); NEUT % 60.1 % (42.8-82.8); PLATELET COUNT 471 10^3/uL (134-434); RBC 4.76 M/mm3 (3.60-5.2); RDW 19.9 % (11.6-15.6); WHITE BLOOD COUNT 7.8 K/mm3 (4.0-10.0)
[2021-03-19 08:49] LABS: IRON SERUM 34 ug/dL (50-175)
[2021-03-19 08:50] LABS: TOTAL IRON BINDING CAPACITY 287 ug/dL (250-450)
[2021-03-19 08:51] LABS: BILIRUBIN,TOTAL 0.7 mg/dL (0.2-1); MAGNESIUM 2.2 mg/dL (1.8-2.4); TOT PROT 7.3 g/dl (6.4-8.2)
[2021-03-19 08:52] LABS: CALCIUM 8.8 mg/dL (8.5-10.1)
[2021-03-19 08:53] LABS: CREATININE 1.2 mg/dL (0.55-1.3)
[2021-03-19 09:17] LABS: BLOOD UREA NITROGEN 14.3 mg/dL (7-18)
[2021-03-19] MEDS ORDERED: HYDROCHLOROTHIAZIDE 25 MG TABLET (FP) PO SCH (10:00)
[2021-03-19] MEDS: ENOXAPARIN NA (PORCINE) 40 MG/0.4 ML DISP.SYRIN SQ SCH (10:42)
[2021-03-19] MEDS: FERROUS SO4 325 MG TABLET (FP) PO SCH (10:43)
[2021-03-19] MEDS ORDERED: GABAPENTIN 100 MG CAPSULE PO SCH (14:00)
[2021-03-19 15:54] VITALS: BP 122/64; PULSE 102; TEMP 98.4
[2021-03-19] MEDS: MINERAL OIL/PET HY-PHL TOPICAL OINTMENT 454 GM JAR TP SCH ×2 (16:27→16:28)
[2021-03-19] MEDS ORDERED: predniSONE 20 MG TABLET (UD) PO ONE (18:40)
== END 2021-03-19 18:31 | disposition short-term general hospital (02) | DRG 381 ==
LOC: JER 03:52 → JERBED 11:58 → J4W 23:27
PROVIDERS: ADMIT Internal Medicine
DX: L13.9 Bullous disorder, unspecified (principal); E66.01 Morbid (severe) obesity due to excess calories; I10 Essential (primary) hypertension; G62.9 Polyneuropathy, unspecified; L03.313 Cellulitis of chest wall; D50.9 Iron deficiency anemia, unspecified; E78.00 Pure hypercholesterolemia, unspecified; G89.29 Other chronic pain; M79.7 Fibromyalgia; R10.11 Right upper quadrant pain; R21 Rash and other nonspecific skin eruption; R74.01 Elevation of levels of liver transaminase levels; Z21 Asymptomatic human immunodeficiency virus [HIV] infection status; Z68.28 Body mass index [BMI] 28.0-28.9, adult; G47.00 Insomnia, unspecified; K21.9 Gastro-esophageal reflux disease without esophagitis
CPT/HCPCS: 36415; 71275-TC; 74174-TC; 76700-TC; 80053; 81003; 82550; 82728; 82803; 83540; 83550; 83605; 83615; 83690; 83735; 84100; 84484; 84703; 85025; 85610; 85730; 86140; 87040; 87070; 87086; 87186; 87205; 87350; 87902; 93005; 93010; 99285-25; C9803; J0131; Q9967; U0003; U0005

== ENCOUNTER 2021-04-29 09:07 | Emergency (ER) | payer OTHER ==
[2021-04-29 10:22] VITALS: BMI 37.5
[2021-04-29] MEDS ORDERED: ACETAMINOPHEN 500 MG TABLET (FP) ONE (10:30)
[2021-04-29] MEDS ORDERED: ACETAMINOPHEN 500 MG TABLET (FP) PO ONE (10:30)
[2021-04-29] MEDS ORDERED: DEXAMETHASONE LIQUID 0.5 MG/5 ML PO ONE (10:48)
[2021-04-29] MEDS ORDERED: DEXAMETHASONE SOD PHOSPHATE 10 MG/1 ML VIAL ONE (11:25)
[2021-04-29] MEDS ORDERED: SILVER SULFADIAZINE 1% TOP CREAM 50 GM JAR TP ONE ×2 (12:07→12:13)
[2021-04-29] MEDS ORDERED: SODIUM CHLORIDE 1,000 ML IV STA (12:47)
[2021-04-29] MEDS ORDERED: KETOROLAC TROMETHAMINE 15 MG/ML VIAL IVPUSH ONE (13:45)
[2021-04-29 13:48] LABS: HEMATOCRIT 32.8 % (32.4-45.2); HEMOGLOBIN 10.3 GM/dL (10.7-15.3); MCH 20.5 pg (25.7-33.7); MCHC 31.3 g/dl (32.0-36.0); MEAN CELL VOLUME 65.3 fl (80-96); MEAN PLT VOLUME 9.3 fl (7.5-11.1); PLATELET COUNT 378 10^3/uL (134-434); RBC 5.02 M/mm3 (3.60-5.2); RDW 21.9 % (11.6-15.6); WHITE BLOOD COUNT 12.7 K/mm3 (4.0-10.0)
[2021-04-29] MEDS ORDERED: KETOROLAC TROMETHAMINE 15 MG/ML VIAL ONE (13:48)
[2021-04-29 14:24] LABS: ALBUMIN 3.2 g/dl (3.4-5.0); BILIRUBIN,TOTAL 0.5 mg/dL (0.2-1); BLOOD UREA NITROGEN 14.3 mg/dL (7-18); CREATININE 1.4 mg/dL (0.55-1.3); TOT PROT 6.9 g/dl (6.4-8.2)
[2021-04-29 15:17] LABS: ANISOCYTOSIS 2+; MACROCYTOSIS 0; OVALOCYTE 1+; PLATELET ESTIMATE NORMAL; TARGET CELLS 1+; TEAR DROP CELLS 1+
[2021-04-29 17:11] LABS: EPI CELLS 21 /uL (0-25.1); HYALINE CASTS 16 /uL (0-3.1); PH,URINE 5.5 (5.0-8.0); URINE APPEARANCE CLOUDY; URINE BACTERIA 3379 /uL (0-1359); URINE BILIRUBIN 1+ (NEGATIVE); URINE COLOR DK YELLOW; URINE GLUCOSE (UA) NEGATIVE (NEGATIVE); URINE KETONE TRACE (NEGATIVE); URINE LEUK ESTERASE 2+ (NEGATIVE); URINE NITRITE POSITIVE (NEGATIVE); URINE PROTEIN 1+ (NEGATIVE); URINE RBC 13 /uL (0-23.9); URINE WBC 227 /uL (0-25.8)
[2021-04-29 20:52] VITALS: BP 137/85; PULSE 120; TEMP 101
[2021-04-30] MEDS ORDERED: HEPARIN NA (PORCINE) 5,000 UNITS/ML 1ML VIAL SQ SCH (06:00)
[2021-04-30] MEDS ORDERED: PIPERACILLIN/TAZOB 4.5 GM 4.5 GM in DEXTROSE 5%-WATER 100 ML IVPB SCH (10:00)
[2021-04-30] MEDS ORDERED: BICTEGRAV/EMTRICIT/TENOFOV (BIKTARVY) 50-200-25 MG TABLET PO SCH (10:00)
== END 2021-04-29 17:40 | disposition home or self-care (01) ==
LOC: JER 09:07
PROC: 3E033GC Introduction of Other Therapeutic Substance into Peripheral Vein, Percutaneous Approach (ICD-10-PCS; principal; 2021-04-29)
DX: R50.9 Fever, unspecified (principal); B34.9 Viral infection, unspecified; S20.352A Superficial foreign body of left front wall of thorax, initial encounter; Y99.9 Unspecified external cause status
CPT/HCPCS: 36415; 71046-TC-FY; 80053; 81003; 85025; 87086; 87186; 87804; 99284-25; C9803; U0003; U0005

== ENCOUNTER 2021-04-30 03:26 | Inpatient (IN) | payer OTHER ==
[2021-04-30] MEDS ORDERED: LACTATED RINGERS SOLUTION 1000 ML INFUS.BAG IV ONE (04:09)
[2021-04-30] MEDS ORDERED: CEFTRIAXONE 1,000 MG in DEXTROSE 5%-WATER - 50 ML IVPB ONE (04:10)
[2021-04-30] MEDS ORDERED: CEFTRIAXONE 1 GM/50 ML BAG ONE (04:15)
[2021-04-30] MEDS ORDERED: ACETAMINOPHEN 1000 MG/100 ML VIAL IVPB ONE (04:20)
[2021-04-30] MEDS ORDERED: ACETAMINOPHEN INJECTION 100 ML IVPB ONE ×2 (04:43→08:25)
[2021-04-30 05:50] LABS: HEMATOCRIT 28.5 % (32.4-45.2); HEMOGLOBIN 8.6 GM/dL (10.7-15.3); MCH 20.3 pg (25.7-33.7); MCHC 30.3 g/dl (32.0-36.0); MEAN PLT VOLUME 10.7 fl (7.5-11.1); PLATELET COUNT 358 10^3/uL (134-434); RBC 4.25 M/mm3 (3.60-5.2); RDW 22.8 % (11.6-15.6); WHITE BLOOD COUNT 13.5 K/mm3 (4.0-10.0)
[2021-04-30] MEDS ORDERED: morphine SULFATE 4 MG/ML VIAL ONE (05:51)
[2021-04-30] MEDS ORDERED: morphine CARPU-JECT 2 MG/1 ML DISP.SYRIN IVPUSH ONE (05:55)
[2021-04-30 06:10] LABS: CHLORIDE 104 mmol/L (98-107); SODIUM 132 mmol/L (136-145)
[2021-04-30 06:12] LABS: BLOOD UREA NITROGEN 18.8 mg/dL (7-18); CALCIUM 8.3 mg/dL (8.5-10.1)
[2021-04-30 06:13] LABS: ALBUMIN 2.8 g/dl (3.4-5.0); CO2 24 mmol/L (21-32); GLUCOSE,RANDOM 163 mg/dL (74-106)
[2021-04-30 06:15] LABS: SGPT/ALT 39 U/L (13-61)
[2021-04-30 06:16] LABS: CREATININE 1.2 mg/dL (0.55-1.3); SGOT/AST 112 U/L (15-37)
[2021-04-30 06:17] LABS: BILIRUBIN,TOTAL 0.4 mg/dL (0.2-1); TOT PROT 6.9 g/dl (6.4-8.2)
[2021-04-30 06:19] LABS: ALK PHOS 104 U/L (45-117)
[2021-04-30 06:23] LABS: LACTIC ACID 3.4 mmol/L (0.4-2.0)
[2021-04-30 06:23] LABS: ANION GAP 4 MMOL/L (8-16)
[2021-04-30] MEDS ORDERED: HEPARIN NA (PORCINE) 5,000 UNITS/ML 1ML VIAL ONE (06:51)
[2021-04-30] MEDS: HEPARIN NA (PORCINE) 5,000 UNITS/ML 1ML VIAL SQ SCH ×3 (06:54→21:13)
[2021-04-30 07:09] LABS: EPI CELLS 19 /uL (0-25.1); HYALINE CASTS 2 /uL (0-3.1); URINE APPEARANCE CLEAR; URINE BACTERIA 387 /uL (0-1359); URINE BILIRUBIN NEGATIVE (NEGATIVE); URINE COLOR YELLOW; URINE GLUCOSE (UA) NEGATIVE (NEGATIVE); URINE KETONE TRACE (NEGATIVE); URINE LEUK ESTERASE 1+ (NEGATIVE); URINE NITRITE NEGATIVE (NEGATIVE); URINE PROTEIN NEGATIVE (NEGATIVE); URINE RBC 7 /uL (0-23.9); URINE WBC 41 /uL (0-25.8)
[2021-04-30 08:10] LABS: BLOOD UREA NITROGEN 18.1 mg/dL (7-18); CALCIUM 8.4 mg/dL (8.5-10.1)
[2021-04-30 08:15] LABS: LACTIC ACID 2.3 mmol/L (0.4-2.0)
[2021-04-30 09:29] LABS: ANISOCYTOSIS 3+; MACROCYTOSIS 1+; OVALOCYTE 1+
[2021-04-30] MEDS ORDERED: PIPERACILLIN/TAZOB 3.375 GM 3.375 GM in DEXTROSE 5%-WATER - 50 ML IVPB SCH (10:00)
[2021-04-30] MEDS ORDERED: PIPERACILLIN/TAZOB 3.375 GM 3.375 GM/50 ML BAG IVPB SCH (10:00)
[2021-04-30] MEDS: ACETAMINOPHEN 1000 MG/100 ML VIAL IVPB PRN ×2 (10:32→21:13)
[2021-04-30] MEDS ORDERED: PIPERACILLIN/TAZOB 3.375 GM 3.375 GM in DEXTROSE 5%-WATER - 3.375 GM/50 ML IVPB IVPB SCH (10:45)
[2021-04-30] MEDS ORDERED: DEXTROSE 5%-WATER - 50 ML IVPB ONE ×2 (10:50→17:08)
[2021-04-30] MEDS ORDERED: PIPERACILLIN/TAZOBACTAM 3.375 GM VIAL IVPB ONE ×2 (10:50→17:08)
[2021-04-30] MEDS ORDERED: PNEUMOC 13-VAL CONJ-DIP CRM/PF 0.5 ML DISP.SYRIN IM ONE (11:09)
[2021-04-30] MEDS ORDERED: PNEUMOCOCCAL 23 VACCINE 0.5 ML VIAL IM ONE (13:00)
[2021-04-30] MEDS ORDERED: SENNOSIDES 8.6MG TABLET (FP) PO PRN (15:44)
[2021-04-30] MEDS: METHOCARBAMOL 500 MG TABLET PO SCH ×2 (17:04→21:14)
[2021-04-30] MEDS: FLUoxetine HCL 20 MG CAPSULE PO SCH (17:04)
[2021-04-30] MEDS: BICTEGRAV/EMTRICIT/TENOFOV (BIKTARVY) 50-200-25 MG TABLET PO SCH (17:04)
[2021-04-30] MEDS: GABAPENTIN 300 MG CAPSULE PO SCH ×2 (17:04→21:13)
[2021-04-30] MEDS ORDERED: PT OWN MED DRAWER 7, Y5N ONE ×2 (17:09→21:08)
[2021-04-30] MEDS: PIPERACILLIN/TAZOB 3.375 GM 3.375 GM in DEXTROSE 5%-WATER - 50 ML IVPB SCH (17:12)
[2021-04-30] MEDS: MONTELUKAST NA 10 MG TABLET PO SCH (21:13)
[2021-04-30] MEDS: ATORVASTATIN CA 10 MG TABLET (FP) PO SCH (21:13)
[2021-04-30] MEDS ORDERED: SULFAMETHOXAZOLE/TRIMETHOPRIM 800MG/160MG D.S. TABLET PO SCH (22:00)
[2021-05-01] MEDS ORDERED: PIPERACILLIN/TAZOBACTAM 3.375 GM VIAL IVPB ONE ×3 (01:02→16:59)
[2021-05-01] MEDS ORDERED: DEXTROSE 5%-WATER - 50 ML IVPB ONE ×3 (01:02→17:00)
[2021-05-01] MEDS: PIPERACILLIN/TAZOB 3.375 GM 3.375 GM in DEXTROSE 5%-WATER - 50 ML IVPB SCH ×3 (01:09→17:12)
[2021-05-01] MEDS: GABAPENTIN 300 MG CAPSULE PO SCH ×4 (05:14→21:07)
[2021-05-01] MEDS: HEPARIN NA (PORCINE) 5,000 UNITS/ML 1ML VIAL SQ SCH ×3 (05:14→21:18)
[2021-05-01 08:41] LABS: BASO % 0.1 % (0-2.0); EOS % 1.5 % (0-4.5); HEMATOCRIT 25.7 % (32.4-45.2); HEMOGLOBIN 8.1 GM/dL (10.7-15.3); LYMPH % 19.7 % (8-40); MCH 20.7 pg (25.7-33.7); MCHC 31.6 g/dl (32.0-36.0); MEAN CELL VOLUME 65.5 fl (80-96); MEAN PLT VOLUME 9.3 fl (7.5-11.1); MONO % 6.1 % (3.8-10.2); NEUT % 72.6 % (42.8-82.8); PLATELET COUNT 338 10^3/uL (134-434); RBC 3.93 M/mm3 (3.60-5.2); RDW 22.3 % (11.6-15.6); WHITE BLOOD COUNT 10.8 K/mm3 (4.0-10.0)
[2021-05-01 09:08] LABS: CALCIUM 8.3 mg/dL (8.5-10.1)
[2021-05-01 09:09] LABS: ALBUMIN 2.6 g/dl (3.4-5.0); BLOOD UREA NITROGEN 12.9 mg/dL (7-18); MAGNESIUM 2.2 mg/dL (1.8-2.4)
[2021-05-01 09:12] LABS: CREATININE 0.8 mg/dL (0.55-1.3)
[2021-05-01 09:13] LABS: BILIRUBIN,TOTAL 0.2 mg/dL (0.2-1)
[2021-05-01 09:14] LABS: TOT PROT 5.8 g/dl (6.4-8.2)
[2021-05-01 09:44] LABS: ERYTHROCYTE SEDIMENTATION RATE 39 mm/hr (0-20)
[2021-05-01] MEDS ORDERED: PT OWN MED DRAWER 7, Y5N ONE ×4 (10:30→20:54)
[2021-05-01] MEDS: amLODIPine BESYLATE 5 MG TABLET (FP) PO SCH (10:43)
[2021-05-01] MEDS: ASCORBIC ACID 500 MG TABLET (FP) PO SCH (10:43)
[2021-05-01] MEDS: FLUoxetine HCL 20 MG CAPSULE PO SCH (10:43)
[2021-05-01] MEDS: CHOLECALCIFEROL (VIT D3) 400 UNIT (10 MCG) TABLET PO SCH (10:43)
[2021-05-01] MEDS: PANTOPRAZOLE 40 MG TABLET PO SCH (10:43)
[2021-05-01] MEDS: BICTEGRAV/EMTRICIT/TENOFOV (BIKTARVY) 50-200-25 MG TABLET PO SCH (10:44)
[2021-05-01] MEDS: MINERAL OIL/PET HY-PHL TOPICAL OINTMENT 454 GM JAR TP SCH (10:44)
[2021-05-01] MEDS: METHOCARBAMOL 500 MG TABLET PO SCH ×4 (10:45→21:09)
[2021-05-01] MEDS: CYANOCOBALAMIN 1,000 MCG TABLET (FP) PO SCH (10:45)
[2021-05-01] MEDS: ACETAMINOPHEN 1000 MG/100 ML VIAL IVPB PRN ×2 (10:52→17:13)
[2021-05-01] MEDS: BISACODYL 5 MG TABLET.DR (FP) PO PRN (11:08)
[2021-05-01] MEDS: DICLOFENAC SODIUM 75 MG TABLET.DR PO SCH ×2 (11:38→21:13)
[2021-05-01] MEDS ORDERED: TRIAMCINOLONE ACET 0.025% OINTMENT 15 GM TUBE TP SCH (12:30)
[2021-05-01] MEDS ORDERED: MUPIROCIN 2% TOPICAL OINTMENT 22 GM TUBE TP SCH (12:30)
[2021-05-01] MEDS ORDERED: predniSONE 20 MG TABLET (UD) PO SCH (13:15)
[2021-05-01] MEDS ORDERED: predniSONE 10 MG TABLET (UD) ONE (13:36)
[2021-05-01] MEDS ORDERED: predniSONE 20 MG TABLET (UD) ONE (13:36)
[2021-05-01] MEDS: ZINC SULFATE 220 MG CAPSULE (FP) PO SCH ×2 (13:55→21:08)
[2021-05-01] MEDS: predniSONE 40 MG, predniSONE 10 MG PO SCH (13:56)
[2021-05-01] MEDS: DOCUSATE SODIUM 100 MG CAPSULE (FP) PO PRN (14:05)
[2021-05-01] MEDS: [UNRECOGNIZED DRUG - MIXTURE] TP SCH (15:20)
[2021-05-01] MEDS: ATORVASTATIN CA 10 MG TABLET (FP) PO SCH (21:07)
[2021-05-01] MEDS: MONTELUKAST NA 10 MG TABLET PO SCH (21:08)
[2021-05-02] MEDS ORDERED: PIPERACILLIN/TAZOBACTAM 3.375 GM VIAL IVPB ONE ×3 (02:14→17:12)
[2021-05-02] MEDS ORDERED: DEXTROSE 5%-WATER - 50 ML IVPB ONE ×3 (02:14→17:12)
[2021-05-02] MEDS: PIPERACILLIN/TAZOB 3.375 GM 3.375 GM in DEXTROSE 5%-WATER - 50 ML IVPB SCH ×3 (02:20→17:21)
[2021-05-02] MEDS: GABAPENTIN 300 MG CAPSULE PO SCH ×3 (05:10→21:31)
[2021-05-02] MEDS: HEPARIN NA (PORCINE) 5,000 UNITS/ML 1ML VIAL SQ SCH ×3 (05:10→21:29)
[2021-05-02] MEDS: ACETAMINOPHEN 1000 MG/100 ML VIAL IVPB PRN ×2 (05:11→18:30)
[2021-05-02 08:21] LABS: BASO % 0.2 % (0-2.0); EOS % 0.1 % (0-4.5); HEMATOCRIT 25.8 % (32.4-45.2); HEMOGLOBIN 8.1 GM/dL (10.7-15.3); LYMPH % 19.4 % (8-40); MCH 20.8 pg (25.7-33.7); MCHC 31.4 g/dl (32.0-36.0); MEAN CELL VOLUME 66.3 fl (80-96); MEAN PLT VOLUME 9.4 fl (7.5-11.1); MONO % 6.6 % (3.8-10.2); NEUT % 73.7 % (42.8-82.8); PLATELET COUNT 371 10^3/uL (134-434); RBC 3.89 M/mm3 (3.60-5.2); RDW 23.1 % (11.6-15.6); WHITE BLOOD COUNT 8.6 K/mm3 (4.0-10.0)
[2021-05-02 08:44] LABS: CALCIUM 8.4 mg/dL (8.5-10.1)
[2021-05-02 08:45] LABS: ALBUMIN 2.6 g/dl (3.4-5.0); MAGNESIUM 2.2 mg/dL (1.8-2.4)
[2021-05-02 08:48] LABS: CREATININE 1.1 mg/dL (0.55-1.3)
[2021-05-02 08:50] LABS: BILIRUBIN,TOTAL 0.4 mg/dL (0.2-1)
[2021-05-02 09:06] LABS: ERYTHROCYTE SEDIMENTATION RATE 42 mm/hr (0-20)
[2021-05-02] MEDS ORDERED: predniSONE 10 MG TABLET (UD) ONE (11:13)
[2021-05-02] MEDS ORDERED: predniSONE 20 MG TABLET (UD) ONE (11:13)
[2021-05-02] MEDS: predniSONE 40 MG, predniSONE 10 MG PO SCH (11:19)
[2021-05-02] MEDS: CHOLECALCIFEROL (VIT D3) 400 UNIT (10 MCG) TABLET PO SCH (11:20)
[2021-05-02] MEDS: DICLOFENAC SODIUM 75 MG TABLET.DR PO SCH ×2 (11:20→22:02)
[2021-05-02] MEDS: CYANOCOBALAMIN 1,000 MCG TABLET (FP) PO SCH (11:20)
[2021-05-02] MEDS: ASCORBIC ACID 500 MG TABLET (FP) PO SCH (11:20)
[2021-05-02] MEDS: amLODIPine BESYLATE 5 MG TABLET (FP) PO SCH (11:21)
[2021-05-02] MEDS: [UNRECOGNIZED DRUG - MIXTURE] TP SCH (11:21)
[2021-05-02] MEDS: ZINC SULFATE 220 MG CAPSULE (FP) PO SCH ×2 (11:21→21:31)
[2021-05-02] MEDS: METHOCARBAMOL 500 MG TABLET PO SCH ×2 (11:21→15:31)
[2021-05-02] MEDS: BICTEGRAV/EMTRICIT/TENOFOV (BIKTARVY) 50-200-25 MG TABLET PO SCH (11:21)
[2021-05-02] MEDS: FLUoxetine HCL 20 MG CAPSULE PO SCH (11:21)
[2021-05-02] MEDS: PANTOPRAZOLE 40 MG TABLET PO SCH (11:21)
[2021-05-02] MEDS: MINERAL OIL/PET HY-PHL TOPICAL OINTMENT 454 GM JAR TP SCH (11:21)
[2021-05-02] MEDS ORDERED: PT OWN MED DRAWER 7, Y5N ONE ×3 (15:19→20:12)
[2021-05-02] MEDS: TRIAMCINOLONE ACET 0.025% OINTMENT 15 GM TUBE TP SCH (21:29)
[2021-05-02] MEDS: MONTELUKAST NA 10 MG TABLET PO SCH (21:31)
[2021-05-02] MEDS: ATORVASTATIN CA 10 MG TABLET (FP) PO SCH (21:31)
[2021-05-02] MEDS: METHOCARBAMOL 500 MG TABLET PO PRN (22:01)
[2021-05-02] MEDS ORDERED: MELATONIN 1 MG TABLET PO ONE (23:23)
[2021-05-02] MEDS: MUPIROCIN 2% TOPICAL OINTMENT 22 GM TUBE TP SCH (23:50)
[2021-05-03] MEDS ORDERED: PIPERACILLIN/TAZOBACTAM 3.375 GM VIAL IVPB ONE (00:01)
[2021-05-03] MEDS ORDERED: DEXTROSE 5%-WATER - 50 ML IVPB ONE (00:01)
[2021-05-03] MEDS: ACETAMINOPHEN 1000 MG/100 ML VIAL IVPB PRN ×2 (00:22→09:22)
[2021-05-03] MEDS: PIPERACILLIN/TAZOB 3.375 GM 3.375 GM in DEXTROSE 5%-WATER - 50 ML IVPB SCH (01:02)
[2021-05-03] MEDS: HEPARIN NA (PORCINE) 5,000 UNITS/ML 1ML VIAL SQ SCH ×3 (05:52→21:24)
[2021-05-03] MEDS: GABAPENTIN 300 MG CAPSULE PO SCH ×3 (05:54→21:21)
[2021-05-03 09:10] LABS: HEMATOCRIT 26.2 % (32.4-45.2); HEMOGLOBIN 8.3 GM/dL (10.7-15.3); MCH 20.8 pg (25.7-33.7); MCHC 31.8 g/dl (32.0-36.0); MEAN CELL VOLUME 65.4 fl (80-96); MEAN PLT VOLUME 9.4 fl (7.5-11.1); PLATELET COUNT 410 10^3/uL (134-434); RDW 22.3 % (11.6-15.6); WHITE BLOOD COUNT 8.2 K/mm3 (4.0-10.0)
[2021-05-03] MEDS ORDERED: predniSONE 10 MG TABLET (UD) ONE (09:14)
[2021-05-03] MEDS ORDERED: predniSONE 20 MG TABLET (UD) ONE (09:14)
[2021-05-03] MEDS ORDERED: PT OWN MED DRAWER 7, Y5N ONE (09:15)
[2021-05-03] MEDS ORDERED: DEXTROSE 5%-WATER 100 ML IVPB ONE (09:15)
[2021-05-03] MEDS: predniSONE 40 MG, predniSONE 10 MG PO SCH (09:23)
[2021-05-03] MEDS: BICTEGRAV/EMTRICIT/TENOFOV (BIKTARVY) 50-200-25 MG TABLET PO SCH (09:24)
[2021-05-03] MEDS: CHOLECALCIFEROL (VIT D3) 400 UNIT (10 MCG) TABLET PO SCH (09:24)
[2021-05-03] MEDS: CYANOCOBALAMIN 1,000 MCG TABLET (FP) PO SCH (09:24)
[2021-05-03] MEDS: amLODIPine BESYLATE 5 MG TABLET (FP) PO SCH (09:24)
[2021-05-03] MEDS: FLUoxetine HCL 20 MG CAPSULE PO SCH (09:24)
[2021-05-03] MEDS: ZINC SULFATE 220 MG CAPSULE (FP) PO SCH ×2 (09:24→21:21)
[2021-05-03] MEDS: PANTOPRAZOLE 40 MG TABLET PO SCH (09:24)
[2021-05-03] MEDS: ASCORBIC ACID 500 MG TABLET (FP) PO SCH (09:24)
[2021-05-03] MEDS: DICLOFENAC SODIUM 75 MG TABLET.DR PO SCH (09:25)
[2021-05-03] MEDS: BISACODYL 5 MG TABLET.DR (FP) PO PRN (09:26)
[2021-05-03] MEDS: METHOCARBAMOL 500 MG TABLET PO PRN ×2 (09:26→16:09)
[2021-05-03 09:31] LABS: ANISOCYTOSIS 2+; MACROCYTOSIS 0; PLATELET ESTIMATE NORMAL
[2021-05-03] MEDS: [UNRECOGNIZED DRUG - MIXTURE] TP SCH (09:36)
[2021-05-03] MEDS: MINERAL OIL/PET HY-PHL TOPICAL OINTMENT 454 GM JAR TP SCH (09:36)
[2021-05-03 09:37] LABS: CALCIUM 8.6 mg/dL (8.5-10.1)
[2021-05-03 09:38] LABS: ALBUMIN 2.5 g/dl (3.4-5.0); BLOOD UREA NITROGEN 14.5 mg/dL (7-18); MAGNESIUM 2.3 mg/dL (1.8-2.4)
[2021-05-03 09:41] LABS: CREATININE 0.9 mg/dL (0.55-1.3)
[2021-05-03 09:43] LABS: BILIRUBIN,TOTAL 0.2 mg/dL (0.2-1); TOT PROT 5.9 g/dl (6.4-8.2)
[2021-05-03 09:48] LABS: ERYTHROCYTE SEDIMENTATION RATE 47 mm/hr (0-20)
[2021-05-03] MEDS ORDERED: CEFTRIAXONE 2 GM in DEXTROSE 5%-WATER 2 GM/100 ML BAG IVPB SCH (10:00)
[2021-05-03] MEDS ORDERED: SILVER SULFADIAZINE 1% TOP CREAM 50 GM JAR TP SCH (11:45)
[2021-05-03] MEDS ORDERED: oxyCODONE HCL 5 MG TABLET PO PRN (12:12)
[2021-05-03] MEDS ORDERED: HYDROmorphone HCl 2 MG/ML VIAL IVPB PRN (12:13)
[2021-05-03] MEDS: DOCUSATE SODIUM 100 MG CAPSULE (FP) PO PRN (13:28)
[2021-05-03] MEDS: HYDROmorphone HCl 2 MG/ML VIAL IVPB PRN (21:20)
[2021-05-03] MEDS: CEFUROXIME AXETIL 500 MG TABLET PO SCH (21:21)
[2021-05-03] MEDS: MONTELUKAST NA 10 MG TABLET PO SCH (21:21)
[2021-05-03] MEDS: ATORVASTATIN CA 10 MG TABLET (FP) PO SCH (21:23)
[2021-05-03] MEDS: MUPIROCIN 2% TOPICAL OINTMENT 22 GM TUBE TP SCH (21:24)
[2021-05-03] MEDS: TRIAMCINOLONE ACET 0.025% OINTMENT 15 GM TUBE TP SCH (21:24)
[2021-05-03] MEDS ORDERED: MELATONIN 1 MG TABLET PO ONE (22:17)
[2021-05-04] MEDS: HYDROmorphone HCl 2 MG/ML VIAL IVPB PRN ×4 (00:43→23:57)
[2021-05-04] MEDS: HEPARIN NA (PORCINE) 5,000 UNITS/ML 1ML VIAL SQ SCH ×3 (05:56→21:24)
[2021-05-04] MEDS: GABAPENTIN 300 MG CAPSULE PO SCH ×3 (05:56→21:24)
[2021-05-04] MEDS ORDERED: predniSONE 20 MG TABLET (UD) ONE (09:13)
[2021-05-04] MEDS ORDERED: predniSONE 10 MG TABLET (UD) ONE (09:13)
[2021-05-04] MEDS: predniSONE 40 MG, predniSONE 10 MG PO SCH (09:19)
[2021-05-04] MEDS: ASCORBIC ACID 500 MG TABLET (FP) PO SCH (09:20)
[2021-05-04] MEDS: CHOLECALCIFEROL (VIT D3) 400 UNIT (10 MCG) TABLET PO SCH (09:20)
[2021-05-04] MEDS: MINERAL OIL/PET HY-PHL TOPICAL OINTMENT 454 GM JAR TP SCH (09:21)
[2021-05-04] MEDS: FLUoxetine HCL 20 MG CAPSULE PO SCH (09:21)
[2021-05-04] MEDS: CEFUROXIME AXETIL 500 MG TABLET PO SCH ×2 (09:21→21:23)
[2021-05-04] MEDS: PANTOPRAZOLE 40 MG TABLET PO SCH (09:21)
[2021-05-04] MEDS: amLODIPine BESYLATE 5 MG TABLET (FP) PO SCH (09:21)
[2021-05-04] MEDS: ZINC SULFATE 220 MG CAPSULE (FP) PO SCH ×2 (09:21→21:24)
[2021-05-04] MEDS: [UNRECOGNIZED DRUG - MIXTURE] TP SCH (09:22)
[2021-05-04] MEDS: BICTEGRAV/EMTRICIT/TENOFOV (BIKTARVY) 50-200-25 MG TABLET PO SCH (09:22)
[2021-05-04] MEDS: CYANOCOBALAMIN 1,000 MCG TABLET (FP) PO SCH (09:23)
[2021-05-04] MEDS: METHOCARBAMOL 500 MG TABLET PO PRN (09:23)
[2021-05-04 10:04] LABS: HEMATOCRIT 29.7 % (32.4-45.2); HEMOGLOBIN 9.5 GM/dL (10.7-15.3); MCH 21.1 pg (25.7-33.7); MCHC 31.9 g/dl (32.0-36.0); MEAN CELL VOLUME 66.1 fl (80-96); MEAN PLT VOLUME 9.1 fl (7.5-11.1); PLATELET COUNT 514 10^3/uL (134-434); RBC 4.49 M/mm3 (3.60-5.2); RDW 22.9 % (11.6-15.6); WHITE BLOOD COUNT 9.1 K/mm3 (4.0-10.0)
[2021-05-04 10:29] LABS: ALBUMIN 2.9 g/dl (3.4-5.0); CALCIUM 9.1 mg/dL (8.5-10.1)
[2021-05-04 10:30] LABS: MAGNESIUM 2.2 mg/dL (1.8-2.4)
[2021-05-04 10:34] LABS: BILIRUBIN,TOTAL 0.4 mg/dL (0.2-1); TOT PROT 6.7 g/dl (6.4-8.2)
[2021-05-04 10:50] LABS: ERYTHROCYTE SEDIMENTATION RATE 37 mm/hr (0-20)
[2021-05-04 12:18] LABS: ANISOCYTOSIS 1+; MACROCYTOSIS 0; OVALOCYTE 2+; PLATELET ESTIMATE INCREASED; TEAR DROP CELLS 1+
[2021-05-04] MEDS: DOCUSATE SODIUM 100 MG CAPSULE (FP) PO PRN (13:54)
[2021-05-04] MEDS: oxyCODONE HCL 5 MG TABLET PO PRN ×2 (13:54→21:27)
[2021-05-04] MEDS: MUPIROCIN 2% TOPICAL OINTMENT 22 GM TUBE TP SCH (21:24)
[2021-05-04] MEDS: ATORVASTATIN CA 10 MG TABLET (FP) PO SCH (21:24)
[2021-05-04] MEDS: TRIAMCINOLONE ACET 0.025% OINTMENT 15 GM TUBE TP SCH (21:24)
[2021-05-04] MEDS: MONTELUKAST NA 10 MG TABLET PO SCH (21:24)
[2021-05-05] MEDS: HEPARIN NA (PORCINE) 5,000 UNITS/ML 1ML VIAL SQ SCH ×3 (05:38→21:24)
[2021-05-05] MEDS: GABAPENTIN 300 MG CAPSULE PO SCH ×3 (05:39→21:23)
[2021-05-05] MEDS: HYDROmorphone HCl 2 MG/ML VIAL IVPB PRN ×3 (06:07→21:24)
[2021-05-05 08:31] LABS: HEMATOCRIT 27.1 % (32.4-45.2); HEMOGLOBIN 8.5 GM/dL (10.7-15.3); MCH 20.7 pg (25.7-33.7); MCHC 31.5 g/dl (32.0-36.0); MEAN CELL VOLUME 65.8 fl (80-96); MEAN PLT VOLUME 8.9 fl (7.5-11.1); PLATELET COUNT 453 10^3/uL (134-434); RBC 4.12 M/mm3 (3.60-5.2); RDW 22.2 % (11.6-15.6); WHITE BLOOD COUNT 8.5 K/mm3 (4.0-10.0)
[2021-05-05 08:59] LABS: BLOOD UREA NITROGEN 15.2 mg/dL (7-18); CALCIUM 8.7 mg/dL (8.5-10.1)
[2021-05-05 09:00] LABS: ALBUMIN 2.5 g/dl (3.4-5.0); CREATININE 0.8 mg/dL (0.55-1.3)
[2021-05-05 09:02] LABS: BILIRUBIN,TOTAL 0.3 mg/dL (0.2-1); MAGNESIUM 2.3 mg/dL (1.8-2.4); TOT PROT 5.9 g/dl (6.4-8.2)
[2021-05-05 09:17] LABS: ERYTHROCYTE SEDIMENTATION RATE 39 mm/hr (0-20)
[2021-05-05 09:45] VITALS: BMI 50.5
[2021-05-05] MEDS ORDERED: predniSONE 20 MG TABLET (UD) ONE (10:20)
[2021-05-05] MEDS ORDERED: predniSONE 10 MG TABLET (UD) ONE (10:20)
[2021-05-05] MEDS: predniSONE 40 MG, predniSONE 10 MG PO SCH (10:29)
[2021-05-05] MEDS: ZINC SULFATE 220 MG CAPSULE (FP) PO SCH ×2 (10:29→21:24)
[2021-05-05] MEDS: ASCORBIC ACID 500 MG TABLET (FP) PO SCH (10:30)
[2021-05-05] MEDS: amLODIPine BESYLATE 5 MG TABLET (FP) PO SCH (10:30)
[2021-05-05] MEDS: [UNRECOGNIZED DRUG - MIXTURE] TP SCH (10:30)
[2021-05-05] MEDS: CHOLECALCIFEROL (VIT D3) 400 UNIT (10 MCG) TABLET PO SCH (10:30)
[2021-05-05] MEDS: PANTOPRAZOLE 40 MG TABLET PO SCH (10:30)
[2021-05-05] MEDS: MINERAL OIL/PET HY-PHL TOPICAL OINTMENT 454 GM JAR TP SCH (10:30)
[2021-05-05] MEDS: FLUoxetine HCL 20 MG CAPSULE PO SCH (10:30)
[2021-05-05] MEDS: CEFUROXIME AXETIL 500 MG TABLET PO SCH ×2 (10:30→21:23)
[2021-05-05] MEDS: MULTIVITAMINS (DAILY MVI) TABLET (FP) PO SCH (10:30)
[2021-05-05] MEDS: BICTEGRAV/EMTRICIT/TENOFOV (BIKTARVY) 50-200-25 MG TABLET PO SCH (10:31)
[2021-05-05] MEDS: CYANOCOBALAMIN 1,000 MCG TABLET (FP) PO SCH (10:31)
[2021-05-05] MEDS: oxyCODONE HCL 5 MG TABLET PO PRN ×2 (10:37→17:37)
[2021-05-05 11:16] LABS: ANISOCYTOSIS 1+; MACROCYTOSIS 0; OVALOCYTE 1+; PLATELET ESTIMATE NORMAL; TARGET CELLS 1+; TEAR DROP CELLS 1+
[2021-05-05] MEDS: ATORVASTATIN CA 10 MG TABLET (FP) PO SCH (21:23)
[2021-05-05] MEDS: MUPIROCIN 2% TOPICAL OINTMENT 22 GM TUBE TP SCH (21:24)
[2021-05-05] MEDS: MONTELUKAST NA 10 MG TABLET PO SCH (21:24)
[2021-05-05] MEDS: TRIAMCINOLONE ACET 0.025% OINTMENT 15 GM TUBE TP SCH (21:24)
[2021-05-06] MEDS: oxyCODONE HCL 5 MG TABLET PO PRN (02:52)
[2021-05-06] MEDS: HEPARIN NA (PORCINE) 5,000 UNITS/ML 1ML VIAL SQ SCH (05:59)
[2021-05-06] MEDS: HYDROmorphone HCl 2 MG/ML VIAL IVPB PRN (05:59)
[2021-05-06] MEDS: GABAPENTIN 300 MG CAPSULE PO SCH (05:59)
[2021-05-06] MEDS ORDERED: predniSONE 10 MG TABLET (UD) ONE (09:47)
[2021-05-06] MEDS ORDERED: predniSONE 20 MG TABLET (UD) ONE (09:47)
[2021-05-06] MEDS: BICTEGRAV/EMTRICIT/TENOFOV (BIKTARVY) 50-200-25 MG TABLET PO SCH (09:53)
[2021-05-06] MEDS: CYANOCOBALAMIN 1,000 MCG TABLET (FP) PO SCH (09:54)
[2021-05-06] MEDS: MINERAL OIL/PET HY-PHL TOPICAL OINTMENT 454 GM JAR TP SCH (09:54)
[2021-05-06] MEDS: FLUoxetine HCL 20 MG CAPSULE PO SCH (09:54)
[2021-05-06] MEDS: CHOLECALCIFEROL (VIT D3) 400 UNIT (10 MCG) TABLET PO SCH (09:54)
[2021-05-06] MEDS: CEFUROXIME AXETIL 500 MG TABLET PO SCH (09:54)
[2021-05-06] MEDS: amLODIPine BESYLATE 5 MG TABLET (FP) PO SCH (09:54)
[2021-05-06] MEDS: ZINC SULFATE 220 MG CAPSULE (FP) PO SCH (09:54)
[2021-05-06] MEDS: PANTOPRAZOLE 40 MG TABLET PO SCH (09:54)
[2021-05-06] MEDS: predniSONE 40 MG, predniSONE 10 MG PO SCH (09:54)
[2021-05-06] MEDS: ASCORBIC ACID 500 MG TABLET (FP) PO SCH (09:54)
[2021-05-06] MEDS: MULTIVITAMINS (DAILY MVI) TABLET (FP) PO SCH (09:54)
[2021-05-06] MEDS: [UNRECOGNIZED DRUG - MIXTURE] TP SCH (09:55)
[2021-05-06 12:31] VITALS: BP 113/60; PULSE 93; TEMP 98
== END 2021-05-06 12:46 | disposition home health service (06) | DRG 381 ==
LOC: JER 03:26 → JERBED 04:09 → J6S 09:12
PROVIDERS: ATTEND Nurse Practitioner Acute Care
DX: L51.1 Stevens-Johnson syndrome (principal); E87.2 Acidosis; Z21 Asymptomatic human immunodeficiency virus [HIV] infection status; N39.0 Urinary tract infection, site not specified; Z68.43 Body mass index [BMI] 50.0-59.9, adult; E66.01 Morbid (severe) obesity due to excess calories; D72.829 Elevated white blood cell count, unspecified; L13.9 Bullous disorder, unspecified; I10 Essential (primary) hypertension; E78.5 Hyperlipidemia, unspecified
CPT/HCPCS: 36415; 76775-TC; 80048; 80053; 81003; 82550; 82553; 83605; 83735; 84132; 84484; 85025; 85651; 86140; 87040; 87086; 87186; 90732; 93005; 93010; 97116-GP; 97162-GP; 99285-25; C9803; G0009; J0131; J1644; U0003; U0005

== ENCOUNTER 2021-09-15 18:18 | Observation (INO) | payer OTHER ==
[2021-09-15 18:46] VITALS: BMI 36.1
[2021-09-15] MEDS ORDERED: ACETAMINOPHEN 1000 MG/100 ML BAG IVPB ONE (18:47)
[2021-09-15] MEDS ORDERED: ONDANSETRON 4 MG/2 ML VIAL IVPUSH ONE (18:47)
[2021-09-15] MEDS ORDERED: FAMOTIDINE 20 MG/50 ML IVPB 20 MG/50 ML MG IVPB ONE ×2 (18:47→19:04)
[2021-09-15] MEDS ORDERED: SODIUM CHLORIDE 0.9% 1000 ML INFUS.BAG IV ONE (18:47)
[2021-09-15] MEDS ORDERED: MAG HYDROX/AL HYDROX/SIMETH -MYLANTA- ORAL SUSPENSION PO ONE (18:47)
[2021-09-15] MEDS ORDERED: ACETAMINOPHEN INJECTION 100 ML IVPB ONE (19:03)
[2021-09-15] MEDS ORDERED: ONDANSETRON 4 MG/2 ML VIAL ONE (19:04)
[2021-09-15] MEDS ORDERED: MAG HYDROX/AL HYDROX/SIMETH 30 ML UNIT-DOSE CUP ONE (19:04)
[2021-09-15 19:09] LABS: BASO % 0.3 % (0-2.0); EOS % 1.7 % (0-4.5); HEMATOCRIT 32.2 % (32.4-45.2); HEMOGLOBIN 10.2 GM/dL (10.7-15.3); LYMPH % 10.9 % (8-40); MCH 20.7 pg (25.7-33.7); MCHC 31.7 g/dl (32.0-36.0); MEAN CELL VOLUME 65.4 fl (80-96); MEAN PLT VOLUME 9.9 fl (7.5-11.1); NEUT % 83.1 % (42.8-82.8); PLATELET COUNT 357 10^3/uL (134-434); RBC 4.93 M/mm3 (3.60-5.2); RDW 19.2 % (11.6-15.6); WHITE BLOOD COUNT 6.6 K/mm3 (4.0-10.0)
[2021-09-15 19:23] LABS: CHLORIDE 107 mmol/L (98-107); SODIUM 140 mmol/L (136-145)
[2021-09-15 19:25] LABS: ANION GAP 5 MMOL/L (8-16); BLOOD UREA NITROGEN 12.9 mg/dL (7-18); CALCIUM 9.3 mg/dL (8.5-10.1); CO2 28 mmol/L (21-32); GLUCOSE,RANDOM 108 mg/dL (74-106); LIPASE 88 U/L (73-393)
[2021-09-15 19:26] LABS: ALBUMIN 3.6 g/dl (3.4-5.0)
[2021-09-15 19:28] LABS: CREATININE 0.8 mg/dL (0.55-1.3); SGOT/AST 13 U/L (15-37); SGPT/ALT 16 U/L (13-61)
[2021-09-15 19:30] LABS: BILIRUBIN,TOTAL 0.4 mg/dL (0.2-1); TOT PROT 7.2 g/dl (6.4-8.2)
[2021-09-15 19:31] LABS: ALK PHOS 110 U/L (45-117)
[2021-09-15] MEDS ORDERED: DEXAMETHASONE SOD PHOSPHATE 10 MG/1 ML VIAL IVPUSH ONE (19:41)
[2021-09-15] MEDS ORDERED: DEXAMETHASONE SOD PHOSPHATE 10 MG/1 ML VIAL ONE (19:47)
[2021-09-15 20:13] LABS: ANISOCYTOSIS 3+; MACROCYTOSIS 0
[2021-09-15] MEDS ORDERED: MIDAZOLAM IN 0.9 % SOD.CHLORID 100 MG/100 ML PLAST..BAG IVPB SCH (20:30)
[2021-09-15] MEDS ORDERED: HYDROmorphone HCL CARPU-JECT 2 MG/1 ML DISP.SYRIN IVPUSH ONE (22:26)
[2021-09-15] MEDS ORDERED: HYDROmorphone HCl 2 MG/ML VIAL ONE (22:33)
[2021-09-15] MEDS ORDERED: IBUPROFEN 400 MG TABLET (FP) PO PRN (23:54)
[2021-09-16] MEDS: ACETAMINOPHEN 325 MG TABLET (FP) PO PRN ×2 (01:52→20:06)
[2021-09-16] MEDS ORDERED: IBUPROFEN 400 MG TABLET (FP) PO ONE (06:14)
[2021-09-16] MEDS: IBUPROFEN 400 MG TABLET (FP) PO PRN (06:19)
[2021-09-16 06:22] LABS: CALCIUM 9.6 mg/dL (8.5-10.1)
[2021-09-16 06:23] LABS: BLOOD UREA NITROGEN 10.5 mg/dL (7-18)
[2021-09-16 06:26] LABS: CREATININE 0.8 mg/dL (0.55-1.3)
[2021-09-16 06:43] LABS: HEMATOCRIT 30.9 % (32.4-45.2); HEMOGLOBIN 9.9 GM/dL (10.7-15.3); MCH 20.8 pg (25.7-33.7); MCHC 32.2 g/dl (32.0-36.0); MEAN CELL VOLUME 64.8 fl (80-96); MEAN PLT VOLUME 9.7 fl (7.5-11.1); MONO % 1.3 % (3.8-10.2); NEUT % 87.7 % (42.8-82.8); PLATELET COUNT 321 10^3/uL (134-434); RBC 4.77 M/mm3 (3.60-5.2); WHITE BLOOD COUNT 5.3 K/mm3 (4.0-10.0)
[2021-09-16] MEDS ORDERED: predniSONE 20 MG TABLET (UD) ONE (09:47)
[2021-09-16] MEDS ORDERED: amLODIPine BESYLATE 5 MG TABLET (FP) ONE (09:47)
[2021-09-16] MEDS ORDERED: ENOXAPARIN NA (PORCINE) 40 MG/0.4 ML DISP.SYRIN SQ ONE (09:48)
[2021-09-16] MEDS ORDERED: predniSONE 20 MG TABLET (UD) PO ONE (10:00)
[2021-09-16] MEDS: amLODIPine BESYLATE 5 MG TABLET (FP) PO SCH (10:03)
[2021-09-16] MEDS: BICTEGRAV/EMTRICIT/TENOFOV (BIKTARVY) 50-200-25 MG TABLET PO SCH (10:03)
[2021-09-16] MEDS: ENOXAPARIN NA (PORCINE) 40 MG/0.4 ML DISP.SYRIN SQ SCH (10:03)
[2021-09-16] MEDS: FLUoxetine HCL 10 MG CAPSULE PO SCH (10:04)
[2021-09-16 10:09] LABS: URINE APPEARANCE CLEAR; URINE BILIRUBIN NEGATIVE (NEGATIVE); URINE COLOR YELLOW; URINE GLUCOSE (UA) NEGATIVE (NEGATIVE)
[2021-09-16 10:10] LABS: EPI CELLS 9 /uL (0-25.1); HYALINE CASTS 2 /uL (0-3.1); PH,URINE 6.5 (5.0-8.0); URINE BACTERIA 5278 /uL (0-1359); URINE KETONE NEGATIVE (NEGATIVE); URINE LEUK ESTERASE TRACE (NEGATIVE); URINE NITRITE POSITIVE (NEGATIVE); URINE PROTEIN TRACE (NEGATIVE); URINE RBC 15 /uL (0-23.9); URINE UROBILINOGEN 0.2 mg/dL (0.2-1.0); URINE WBC 180 /uL (0-25.8)
[2021-09-16] MEDS: LACTATED RINGERS SOLUTION 1,000 ML/1,000 ML INFUS.BAG IV SCH ×2 (19:30→20:08)
[2021-09-16] MEDS ORDERED: DEXTROSE 5%-WATER - 50 ML IVPB ONE (19:49)
[2021-09-16] MEDS ORDERED: cefTRIAXone SODIUM 1 GM VIAL ONE (19:49)
[2021-09-16] MEDS: CEFTRIAXONE 1 GM in DEXTROSE 5%-WATER - 50 ML IVPB SCH (20:05)
[2021-09-16] MEDS ORDERED: MAG HYDROX/AL HYDROX/SIMETH 30 ML UNIT-DOSE CUP PO ONE (21:24)
[2021-09-16] MEDS ORDERED: traZODone HCL 50 MG TABLET (FP) ONE (21:35)
[2021-09-16] MEDS ORDERED: DOCUSATE SODIUM 100 MG CAPSULE (FP) PO PRN (22:00)
[2021-09-16] MEDS ORDERED: traZODone HCL 100 MG TABLET (FP) PO SCH (22:00)
[2021-09-16] MEDS ORDERED: ATORVASTATIN CA 10 MG TABLET (FP) PO SCH (22:00)
[2021-09-17] MEDS: ACETAMINOPHEN 325 MG TABLET (FP) PO PRN ×2 (02:52→14:01)
[2021-09-17] MEDS: LACTATED RINGERS SOLUTION 1,000 ML/1,000 ML INFUS.BAG IV SCH (03:29)
[2021-09-17] MEDS: IBUPROFEN 400 MG TABLET (FP) PO PRN (06:36)
[2021-09-17 07:14] LABS: BASO % 0.1 % (0-2.0); HEMATOCRIT 28.9 % (32.4-45.2); HEMOGLOBIN 9.1 GM/dL (10.7-15.3); LYMPH % 21.2 % (8-40); MCH 20.5 pg (25.7-33.7); MCHC 31.4 g/dl (32.0-36.0); MEAN CELL VOLUME 65.3 fl (80-96); MEAN PLT VOLUME 10.6 fl (7.5-11.1); MONO % 5.1 % (3.8-10.2); NEUT % 73.6 % (42.8-82.8); PLATELET COUNT 341 10^3/uL (134-434); RBC 4.42 M/mm3 (3.60-5.2); RDW 18.9 % (11.6-15.6); WHITE BLOOD COUNT 8.5 K/mm3 (4.0-10.0)
[2021-09-17 07:34] LABS: BLOOD UREA NITROGEN 7.6 mg/dL (7-18); CALCIUM 9.3 mg/dL (8.5-10.1)
[2021-09-17 07:35] LABS: MAGNESIUM 2.1 mg/dL (1.8-2.4)
[2021-09-17 07:37] LABS: CREATININE 0.9 mg/dL (0.55-1.3); PHOSPHOROUS 2.4 mg/dL (2.5-4.9)
[2021-09-17] MEDS ORDERED: DEXTROSE 5%-WATER - 50 ML IVPB ONE (09:14)
[2021-09-17] MEDS ORDERED: cefTRIAXone SODIUM 1 GM VIAL ONE (09:14)
[2021-09-17] MEDS: BICTEGRAV/EMTRICIT/TENOFOV (BIKTARVY) 50-200-25 MG TABLET PO SCH (09:47)
[2021-09-17] MEDS: FLUoxetine HCL 10 MG CAPSULE PO SCH (09:47)
[2021-09-17] MEDS: amLODIPine BESYLATE 5 MG TABLET (FP) PO SCH (09:47)
[2021-09-17] MEDS: ENOXAPARIN NA (PORCINE) 40 MG/0.4 ML DISP.SYRIN SQ SCH (09:47)
[2021-09-17] MEDS: CEFTRIAXONE 1 GM in DEXTROSE 5%-WATER - 50 ML IVPB SCH (09:48)
[2021-09-17] MEDS ORDERED: GABAPENTIN 100 MG CAPSULE PO SCH (14:00)
[2021-09-17] MEDS ORDERED: DOCUSATE SODIUM 100 MG CAPSULE (FP) PO PRN (21:04)
[2021-09-17] MEDS ORDERED: ACETAMINOPHEN 325 MG TABLET (FP) PO PRN (21:04)
[2021-09-17] MEDS: GABAPENTIN 100 MG CAPSULE PO SCH (21:45)
[2021-09-17] MEDS ORDERED: ATORVASTATIN CA 10 MG TABLET (FP) PO SCH (22:00)
[2021-09-17] MEDS ORDERED: traZODone HCL 100 MG TABLET (FP) PO SCH (22:00)
[2021-09-18] MEDS: GABAPENTIN 100 MG CAPSULE PO SCH ×2 (05:48→14:23)
[2021-09-18] MEDS ORDERED: DEXTROSE 5%-WATER - 50 ML IVPB ONE (09:29)
[2021-09-18] MEDS ORDERED: cefTRIAXone SODIUM 1 GM VIAL ONE (09:29)
[2021-09-18] MEDS ORDERED: CEFTRIAXONE 1 GM in DEXTROSE 5%-WATER - 50 ML IVPB SCH (10:00)
[2021-09-18] MEDS ORDERED: ENOXAPARIN NA (PORCINE) 40 MG/0.4 ML DISP.SYRIN SQ SCH (10:00)
[2021-09-18] MEDS ORDERED: amLODIPine BESYLATE 5 MG TABLET (FP) PO SCH (10:00)
[2021-09-18] MEDS ORDERED: FLUoxetine HCL 10 MG CAPSULE PO SCH (10:00)
[2021-09-18] MEDS ORDERED: BICTEGRAV/EMTRICIT/TENOFOV (BIKTARVY) 50-200-25 MG TABLET PO SCH (10:00)
[2021-09-18] MEDS ORDERED: BACITRACIN 15 GM TUBE TOPICAL OINTMENT TP SCH (14:45)
[2021-09-18 15:21] VITALS: BP 118/75; PULSE 73; TEMP 98.2
== END 2021-09-18 17:22 | disposition home or self-care (01) ==
LOC: JER 18:18 → UNDOADMOB 21:30 → JERBED 21:30 → INTOOBSV 21:30 → JERBED 23:55 → J4W 09-16 18:28 → J6S 09-17 20:45
PROVIDERS: ADMIT Hospitalist; ATTEND Internal Medicine
PROC: 0HBJXZX Excision of Left Upper Leg Skin, External Approach, Diagnostic (ICD-10-PCS; principal; 2021-09-16)
PROC: 3E03329 Introduction of Other Anti-infective into Peripheral Vein, Percutaneous Approach (ICD-10-PCS; 2021-09-16)
PROC: 3E033GC Introduction of Other Therapeutic Substance into Peripheral Vein, Percutaneous Approach (ICD-10-PCS; 2021-09-16)
PROC: 3E023GC Introduction of Other Therapeutic Substance into Muscle, Percutaneous Approach (ICD-10-PCS; 2021-09-16)
PROC: 3E033NZ Introduction of Analgesics, Hypnotics, Sedatives into Peripheral Vein, Percutaneous Approach (ICD-10-PCS; 2021-09-16)
PROC: 3E0337Z Introduction of Electrolytic and Water Balance Substance into Peripheral Vein, Percutaneous Approach (ICD-10-PCS; 2021-09-16)
DX: L30.8 Other specified dermatitis (principal); R77.8 Other specified abnormalities of plasma proteins; R10.84 Generalized abdominal pain; L13.8 Other specified bullous disorders; D25.9 Leiomyoma of uterus, unspecified; L51.1 Stevens-Johnson syndrome; R11.10 Vomiting, unspecified; E78.5 Hyperlipidemia, unspecified; D50.9 Iron deficiency anemia, unspecified; E66.8 Other obesity; Z68.36 Body mass index [BMI] 36.0-36.9, adult; F32.9 Major depressive disorder, single episode, unspecified; Z96.653 Presence of artificial knee joint, bilateral; Z21 Asymptomatic human immunodeficiency virus [HIV] infection status; F41.0 Panic disorder [episodic paroxysmal anxiety]; K52.9 Noninfective gastroenteritis and colitis, unspecified; N39.0 Urinary tract infection, site not specified; Z88.1 Allergy status to other antibiotic agents; Z88.2 Allergy status to sulfonamides; Z29.8 Encounter for other specified prophylactic measures
CPT/HCPCS: 36415; 71045-TC-FY; 74177-TC; 80048; 80053; 80061; 81003; 83036; 83690; 83735; 84100; 84484; 84703; 85025; 87086; 87186; 88305-TC; 93005; 93010; 96372; 96374; 96375; 97116-GP; 97161-GP; 99285-25; C9803-CS; G0378; J1100; Q9967; U0003; U0005

== ENCOUNTER 2022-09-21 16:04 | Emergency (ER) | payer OTHER ==
[2022-09-21 16:20] VITALS: BP 159/84; PULSE 98; RESP 18; BMI 58.6
[2022-09-21 16:41] VITALS: TEMP 101.4
[2022-09-21] MEDS ORDERED: ACETAMINOPHEN 1000 MG/100 ML BAG IVPB ONE (16:46)
[2022-09-21] MEDS ORDERED: METOCLOPRAMIDE HCL INJECTION 10 MG/2 ML VIAL IVPUSH ONE (16:46)
[2022-09-21] MEDS ORDERED: SODIUM CHLORIDE 0.9% 500 ML INFUS.BAG IV ONE (17:14)
[2022-09-21 17:15] LABS: BASO % 0.3 % (0-2.0); EOS % 0.3 % (0-4.5); HEMATOCRIT 29.4 % (32.4-45.2); HEMOGLOBIN 9.4 GM/dL (10.7-15.3); MCH 20.2 pg (25.7-33.7); MCHC 31.9 g/dl (32.0-36.0); MEAN CELL VOLUME 63.3 fl (80-96); MEAN PLT VOLUME 9.4 fl (7.5-11.1); MONO % 4.5 % (3.8-10.2); NEUT % 88.9 % (42.8-82.8); PLATELET COUNT 309 10^3/uL (134-434); RBC 4.65 M/mm3 (3.60-5.2); RDW 19.6 % (11.6-15.6); WHITE BLOOD COUNT 17.3 K/mm3 (4.0-10.0)
[2022-09-21 17:49] LABS: CALCIUM 9.3 mg/dL (8.5-10.1)
[2022-09-21 17:50] LABS: ALBUMIN 3.6 g/dl (3.4-5.0); BLOOD UREA NITROGEN 8.8 mg/dL (7-18)
[2022-09-21 17:53] LABS: CREATININE 0.7 mg/dL (0.55-1.3)
[2022-09-21 17:54] LABS: BILIRUBIN,TOTAL 0.6 mg/dL (0.2-1); TOT PROT 7.3 g/dl (6.4-8.2)
[2022-09-21] MEDS ORDERED: METOCLOPRAMIDE HCL INJECTION 10 MG/2 ML VIAL ONE (17:59)
[2022-09-21] MEDS ORDERED: ACETAMINOPHEN INJECTION 100 ML IVPB ONE (17:59)
[2022-09-21 18:15] LABS: N-TERMINAL BNP 114.9 pg/ml (5-125)
[2022-09-21 18:19] LABS: PH,URINE 6.5 (5.0-8.0); URINE APPEARANCE CLEAR; URINE BILIRUBIN NEGATIVE (NEGATIVE); URINE COLOR YELLOW; URINE GLUCOSE (UA) NEGATIVE (NEGATIVE); URINE KETONE NEGATIVE (NEGATIVE); URINE LEUK ESTERASE NEGATIVE (NEGATIVE); URINE NITRITE NEGATIVE (NEGATIVE); URINE PROTEIN NEGATIVE (NEGATIVE)
[2022-09-21 18:35] LABS: THROAT:GRP A STREP DETECTED (NOTDETECTED)
[2022-09-21 18:54] LABS: MACROCYTOSIS 1+; TARGET CELLS 1+
[2022-09-21 18:55] LABS: ANISOCYTOSIS 2+
[2022-09-21 18:56] LABS: OVALOCYTE 1+
[2022-09-21] MEDS ORDERED: KETOROLAC TROMETHAMINE 15 MG/ML VIAL IVPUSH ONE (22:32)
[2022-09-21] MEDS ORDERED: KETOROLAC TROMETHAMINE 15 MG/ML VIAL ONE (22:45)
[2022-09-21] MEDS ORDERED: AMOX TR/POT CLAV 875MG/125MG TABLETS (FP) PO ONE (22:49)
[2022-09-21] MEDS ORDERED: AMOX TR/POT CLAV 875MG/125MG TABLETS (FP) ONE (22:54)
== END 2022-09-21 23:08 | disposition home or self-care (01) ==
LOC: JER 16:04
PROC: 3E033NZ Introduction of Analgesics, Hypnotics, Sedatives into Peripheral Vein, Percutaneous Approach (ICD-10-PCS; principal; 2022-09-21)
PROC: 3E033GC Introduction of Other Therapeutic Substance into Peripheral Vein, Percutaneous Approach (ICD-10-PCS; 2022-09-21)
PROC: 3E033GC Introduction of Other Therapeutic Substance into Peripheral Vein, Percutaneous Approach (ICD-10-PCS; 2022-09-21)
DX: R07.9 Chest pain, unspecified (principal); R51.9 Headache, unspecified; J02.0 Streptococcal pharyngitis; R50.9 Fever, unspecified; R06.02 Shortness of breath; R10.9 Unspecified abdominal pain; M79.10 Myalgia, unspecified site; R53.81 Other malaise; S09.90XA Unspecified injury of head, initial encounter; W19.XXXA Unspecified fall, initial encounter; Z20.822 Contact with and (suspected) exposure to COVID-19
CPT/HCPCS: 0241U-QW; 36415; 70450-TC; 71045-TC-FY; 80053; 81003; 83605; 83690; 83880; 84484; 84703; 85025; 87040; 87086; 87651; 93005; 93010; 99285-25

== ENCOUNTER 2023-08-23 16:45 | Emergency (ER) | payer OTHER ==
[2023-08-23 17:30] VITALS: BMI 39.0
[2023-08-23] MEDS ORDERED: ACETAMINOPHEN INJECTION 100 ML IVPB ONE (17:47)
[2023-08-23 18:23] LABS: BASO % 0.3 % (0-2.0); EOS % 0.4 % (0-4.5); HEMATOCRIT 34.4 % (32.4-45.2); HEMOGLOBIN 10.9 GM/dL (10.7-15.3); LYMPH % 6.6 % (8-40); MCHC 31.5 g/dl (32.0-36.0); MEAN CELL VOLUME 63.5 fl (80-96); MEAN PLT VOLUME 9.7 fl (7.5-11.1); MONO % 2.7 % (3.8-10.2); PLATELET COUNT 343 10^3/uL (134-434); RBC 5.42 M/mm3 (3.60-5.2); RDW 20.3 % (11.6-15.6); WHITE BLOOD COUNT 17.2 K/mm3 (4.0-10.0)
[2023-08-23] MEDS: ACETAMINOPHEN 1000 MG/100 ML BAG IVPB ONE (18:30)
[2023-08-23 18:40] LABS: POTASSIUM 4.1 mmol/L (3.5-5.1)
[2023-08-23 18:43] LABS: CALCIUM 9.9 mg/dL (8.5-10.1)
[2023-08-23 18:44] LABS: ALBUMIN 3.7 g/dl (3.4-5.0); BLOOD UREA NITROGEN 7.5 mg/dL (7-18); MAGNESIUM 1.9 mg/dL (1.8-2.4)
[2023-08-23 18:48] LABS: BILIRUBIN,TOTAL 0.7 mg/dL (0.2-1); TOT PROT 8.2 g/dl (6.4-8.2)
[2023-08-23 19:59] LABS: ANISOCYTOSIS 3+; MACROCYTOSIS 1+; OVALOCYTE 1+; TARGET CELLS 1+
[2023-08-23] MEDS: SODIUM CHLORIDE 0.9% 500 ML INFUS.BAG IV ONE (20:41)
[2023-08-23 20:43] VITALS: TEMP 99.3
[2023-08-23] MEDS: morphine CARPU-JECT 2 MG/1 ML DISP.SYRIN IVPUSH ONE (21:39)
[2023-08-23 22:12] LABS: URINE APPEARANCE CLEAR; URINE BILIRUBIN NEGATIVE (NEGATIVE); URINE COLOR YELLOW; URINE GLUCOSE (UA) NEGATIVE (NEGATIVE); URINE KETONE NEGATIVE (NEGATIVE); URINE LEUK ESTERASE NEGATIVE (NEGATIVE); URINE NITRITE NEGATIVE (NEGATIVE); URINE PROTEIN NEGATIVE (NEGATIVE)
[2023-08-23] MEDS ORDERED: AMOX TR/POT CLAV 875MG/125MG TABLETS (FP) ONE (22:23)
[2023-08-23] MEDS: AMOX TR/POT CLAV 875MG/125MG TABLETS (FP) PO STA (22:38)
[2023-08-24] VITALS: RESP 20
[2023-08-24] MEDS: ONDANSETRON 4 MG/2 ML VIAL IVPB ONE (01:02)
[2023-08-24 01:33] VITALS: BP 168/83; PULSE 110
== END 2023-08-24 02:24 | disposition home or self-care (01) ==
LOC: JER 16:45
PROC: 3E033NZ Introduction of Analgesics, Hypnotics, Sedatives into Peripheral Vein, Percutaneous Approach (ICD-10-PCS; principal; 2023-08-23)
PROC: 3E033GC Introduction of Other Therapeutic Substance into Peripheral Vein, Percutaneous Approach (ICD-10-PCS; 2023-08-23)
PROC: 3E033GC Introduction of Other Therapeutic Substance into Peripheral Vein, Percutaneous Approach (ICD-10-PCS; 2023-08-23)
DX: R10.84 Generalized abdominal pain (principal); J02.0 Streptococcal pharyngitis; R11.0 Nausea; R19.7 Diarrhea, unspecified; R50.9 Fever, unspecified; Z20.822 Contact with and (suspected) exposure to COVID-19
CPT/HCPCS: 0241U-QW; 36415; 71045-TC-FY; 74177-TC; 80053; 81003; 83605; 83690; 83735; 84484; 84703; 85025; 87040; 87086; 87186; 87651; 93005; 93010; 99285-25; J0131; Q9967

== ENCOUNTER 2024-04-07 01:48 | Emergency (ER) | payer OTHER ==
[2024-04-07 02:06] VITALS: BMI 42.0
[2024-04-07] MEDS ORDERED: ACETAMINOPHEN INJECTION 100 ML ONE (02:49)
[2024-04-07] MEDS: ACETAMINOPHEN 1000 MG/100 ML BAG IVPB ONE (03:01)
[2024-04-07] MEDS: SODIUM CHLORIDE 0.9% 1000 ML INFUS.BAG IV STA (03:01)
[2024-04-07 03:07] LABS: VENOUS BASE EXCESS -0.6 mmol/L (-2-2); VENOUS PCO2 34.6 mmHg (38-52); VENOUS PH 7.442 (7.310-7.410)
[2024-04-07 03:08] LABS: BASO % 0.3 % (0-2.0); EOS % 0.3 % (0-4.5); HEMATOCRIT 31.8 % (32.4-45.2); HEMOGLOBIN 10.2 GM/dL (10.7-15.3); LYMPH % 5.3 % (8-40); MCH 20.9 pg (25.7-33.7); MCHC 32.1 g/dl (32.0-36.0); MEAN CELL VOLUME 65.1 fl (80-96); MEAN PLT VOLUME 9.8 fl (7.5-11.1); MONO % 5.2 % (3.8-10.2); NEUT % 88.9 % (42.8-82.8); PLATELET COUNT 258 10^3/uL (134-434); RBC 4.88 M/mm3 (3.60-5.2); RDW 17.8 % (11.6-15.6); WHITE BLOOD COUNT 17.9 K/mm3 (4.0-10.0)
[2024-04-07 03:26] LABS: POTASSIUM 3.3 mmol/L (3.5-5.1)
[2024-04-07 03:28] LABS: BLOOD UREA NITROGEN 9.7 mg/dL (7-18); CALCIUM 8.8 mg/dL (8.5-10.1)
[2024-04-07 03:31] LABS: CREATININE 0.9 mg/dL (0.55-1.3); INR 1.14 (0.83-1.09); PROTHROMBIN TIME (PATIENT) 13.1 SEC (9.7-13.0)
[2024-04-07 03:33] LABS: ACTIVATED PTT 34.6 SECONDS (25.2-36.5); BILIRUBIN,TOTAL 1.1 mg/dL (0.2-1); TOT PROT 7.1 g/dl (6.4-8.2)
[2024-04-07] MEDS ORDERED: MAGNESIUM SULFATE IN WATER 2 GM/50 ML IVPB IVPB ONE (03:34)
[2024-04-07 03:36] LABS: N-TERMINAL BNP 68.9 pg/ml (5-125)
[2024-04-07] MEDS ORDERED: DEXAMETHASONE SOD PHOSPHATE 10 MG/1 ML VIAL ONE (03:40)
[2024-04-07] MEDS ORDERED: KETOROLAC TROMETHAMINE 15 MG/ML VIAL ONE (03:40)
[2024-04-07] MEDS: DEXAMETHASONE SOD PHOSPHATE 20 MG/5 ML VIAL IVPB ONE (03:55)
[2024-04-07] MEDS: KETOROLAC TROMETHAMINE 15 MG/ML VIAL IVPUSH ONE (03:55)
[2024-04-07] MEDS: MAGNESIUM SULFATE IN WATER 2 GM/50 ML IVPB IVPB ONE (03:55)
[2024-04-07 04:48] VITALS: BP 166/80; PULSE 94; RESP 19; TEMP 98.7
[2024-04-07 06:45] LABS: ANISOCYTOSIS 3+; MACROCYTOSIS 0
== END 2024-04-07 09:21 | disposition home or self-care (01) ==
LOC: JER 01:48
PROC: 3E033GC Introduction of Other Therapeutic Substance into Peripheral Vein, Percutaneous Approach (ICD-10-PCS; principal; 2024-04-07)
PROC: 3E033NZ Introduction of Analgesics, Hypnotics, Sedatives into Peripheral Vein, Percutaneous Approach (ICD-10-PCS; 2024-04-07)
PROC: 3E033GC Introduction of Other Therapeutic Substance into Peripheral Vein, Percutaneous Approach (ICD-10-PCS; 2024-04-07)
PROC: 3E0333Z Introduction of Anti-inflammatory into Peripheral Vein, Percutaneous Approach (ICD-10-PCS; 2024-04-07)
DX: J02.9 Acute pharyngitis, unspecified (principal); B34.9 Viral infection, unspecified; R50.9 Fever, unspecified; R05.9 Cough, unspecified; M79.10 Myalgia, unspecified site; R00.0 Tachycardia, unspecified; I10 Essential (primary) hypertension; Z20.822 Contact with and (suspected) exposure to COVID-19
CPT/HCPCS: 0241U-QW; 36415; 71045-TC-FY; 80053; 82803; 83605; 83735; 83880; 85025; 85610; 85730; 86850; 86900; 86901; 87651; 93005; 93010; 99285-25; J0131